=== PATIENT | male | born 1930 | race Asian ===

== ENCOUNTER 2016-07-21 13:23 | Inpatient (IN) | payer MEDICARE, OTHER ==
[~2016-07-21] VITALS: Ht 172.7 cm; Wt 56.4 kg
[~2016-07-21 13:23] MED LIST: ALBU8HFA4 IH; AMLO5TAB66 PO; ATOR20TA86 PO; ESOM40CA PO; FOLI1TAB15 PO; INSU100C4 SQ; IPRAHFA IH; LEVO75TA12 PO; LOSA50TA37 PO; PRED20 PO; SITA50 PO; WARF1 PO
[2016-07-21] MEDS ORDERED: ALBUTEROL SULFATE 2.5 MG/0.5 ML NEB SOLUTION NEB ONE (13:45)
[2016-07-21] MEDS ORDERED: IPRATROPIUM BROMIDE 0.5 MG/2.5 ML NEB SOLUTION NEB ONE ×2 (13:45→14:30)
[2016-07-21] MEDS ORDERED: DEXAMETHASONE SOD PHOS 4 MG/ML 5 ML VIAL IVP ONE (14:30)
[2016-07-21] MEDS ORDERED: ALBUTEROL SULFATE 5 MG/ML 20 ML NEB SOLN [BULK] NEB ONE (14:30)
[2016-07-21 14:48] LABS: BASOPHILS % (AUTO) 0.1 % (0.0-2.0); EOSINOPHILS % (AUTO) 0.3 % (1.0-6.0); HEMATOCRIT 26.7 % (41-53); HEMOGLOBIN 8.4 g/dL (13.5-17.5); LYMPHOCYTES % (AUTO) 8.3 % (22.0-44.0); MEAN CORPUSCULAR HEMOGLOBIN 25.3 pg (26.0-34.0); MEAN CORPUSCULAR HGB CONC 31.3 G/dL (31.0-37.0); MEAN CORPUSCULAR VOLUME 81 fL (80-100); MONOCYTES # (AUTO) 0.8 K/uL (0.1-1.0); MONOCYTES % (AUTO) 6.4 % (2.0-9.0); NEUTROPHILS # (AUTO) 10.3 K/uL (1.8-7.7); NEUTROPHILS % (AUTO) 84.9 % (40.0-70.0); PLATELET COUNT (AUTO) 381 K/uL (150-450); RED CELL DISTRIBUTION WIDTH 15.2 % (11.5-14.5); WHITE BLOOD COUNT (AUTO) 12.2 K/uL (4.5-11.0)
[2016-07-21 15:02] LABS: CALCIUM, TOTAL 8.2 mg/dL (8.8-10.5); CREATININE 1.81 mg/dL (0.60-1.30); POTASSIUM 4.1 mmol/L (3.5-5.1)
[2016-07-21 15:09] LABS: BILIRUBIN,TOTAL 0.5 mg/dL (0.1-1.0); TOTAL PROTEIN, SERUM 6.9 g/dL (6.4-8.2)
[2016-07-21 15:18] LABS: ORIG DRAW (USER) PTCARESTAF
[2016-07-21 15:41] LABS: INFLUENZA TYPE B NEGATIVE FOR TYPE B (NEGATIVE)
[2016-07-21] MEDS ORDERED: AZITHROMYCIN 500 MG/NS 250 ML IV ONE (16:00)
[2016-07-21] MEDS ORDERED: CefTRIAXone 1 GM/DEXTROSE 50 ML IV ONE (16:00)
[2016-07-21 16:02] LABS: INR 13.7 (0.9-1.1)
[2016-07-21 16:03] LABS: PROTHROMBIN TIME 145.3 SEC (9.4-11.6)
[2016-07-21] MEDS ORDERED: 0.9% SODIUM CHLORIDE 10 ML SYRINGE IVP PRN (18:15)
[2016-07-21] MEDS ORDERED: ACETAMINOPHEN 325 MG TABLET PO PRN (18:15)
[2016-07-21] MEDS ORDERED: ONDANSETRON HCL 4 MG/2 ML VIAL IVP PRN (18:15)
[2016-07-21 22:19] VITALS: BP 130/58
[2016-07-21 23:32] VITALS: BP 125/54
[2016-07-22] MEDS ORDERED: PHYTONADIONE 5 MG TABLET PO ONE (03:30)
[2016-07-22] MEDS ORDERED: DEXTROSE 50%-WATER 25 GM/50 ML SYRINGE IVP PRN (03:45)
[2016-07-22 04:29] VITALS: BP 132/52
[2016-07-22] MEDS: LEVOTHYROXINE SODIUM 75 MCG TABLET PO SCH (05:42)
[2016-07-22] MEDS: INSULIN ASPART 100 UNITS/ML SQ PRN ×4 (05:45→20:30)
[2016-07-22] MEDS ORDERED: PHYTONADIONE 5 MG in SODIUM CHLORIDE 0.9% 50 ML IV ONE (06:30)
[2016-07-22 07:16] VITALS: BP 140/49
[2016-07-22] MEDS: AmLODIPine BESYLATE 5 MG TABLET PO SCH (08:00)
[2016-07-22] MEDS: LOSARTAN POTASSIUM 50 MG TABLET PO SCH (08:01)
[2016-07-22] MEDS: FOLIC ACID 1 MG TABLET PO SCH (08:01)
[2016-07-22] MEDS: ATORVASTATIN CALCIUM 20 MG TABLET PO SCH (08:01)
[2016-07-22 08:10] LABS: EOSINOPHILS % (AUTO) 0 % (1.0-6.0); HEMATOCRIT 23.3 % (41-53); HEMOGLOBIN 7.2 g/dL (13.5-17.5); LYMPHOCYTES # (AUTO) 0.4 K/uL (1.0-4.8); LYMPHOCYTES % (AUTO) 3.5 % (22.0-44.0); MEAN CORPUSCULAR HEMOGLOBIN 25.7 pg (26.0-34.0); MEAN CORPUSCULAR VOLUME 83 fL (80-100); MONOCYTES # (AUTO) 0.1 K/uL (0.1-1.0); MONOCYTES % (AUTO) 1.1 % (2.0-9.0); NEUTROPHILS # (AUTO) 10.2 K/uL (1.8-7.7); NEUTROPHILS % (AUTO) 95.4 % (40.0-70.0); PLATELET COUNT (AUTO) 386 K/uL (150-450); RED BLOOD CELL COUNT(AUTO) 2.82 MIL/uL (4.50-5.90); RED CELL DISTRIBUTION WIDTH 15.4 % (11.5-14.5); WHITE BLOOD COUNT (AUTO) 10.7 K/uL (4.5-11.0)
[2016-07-22 08:24] LABS: CALCIUM, TOTAL 8.2 mg/dL (8.8-10.5); CREATININE 2.04 mg/dL (0.60-1.30); POTASSIUM 5.2 mmol/L (3.5-5.1)
[2016-07-22 09:19] LABS: PROTHROMBIN TIME 117.2 SEC (9.4-11.6)
[2016-07-22 10:07] LABS: INR 11.1 (0.9-1.1)
[2016-07-22 11:08] VITALS: BP 123/55
[2016-07-22] MEDS: DOXYCYCLINE 100 MG CAPSULE PO SCH ×2 (12:23→20:25)
[2016-07-22] MEDS: CefTRIAXone 1 GM/DEXTROSE 50 ML IV SCH (15:01)
[2016-07-22 15:14] VITALS: BP 127/53
[2016-07-22] MEDS: ALBUTEROL SULFATE 2.5 MG/0.5 ML NEB SOLUTION NEB SCH ×3 (16:20→23:12)
[2016-07-22] MEDS: IPRATROPIUM BROMIDE 0.5 MG/2.5 ML NEB SOLUTION NEB SCH ×3 (16:20→23:12)
[2016-07-22 17:22] LABS: GLUCOSE COMMENT 1 Received Meds; GLUCOSE,POINT OF CARE 391 MG/DL (70-110)
[2016-07-22 17:26] LABS: GLUCOSE COMMENT 1 Received Meds; GLUCOSE,POINT OF CARE 330 MG/DL (70-110)
[2016-07-22 19:35] VITALS: BP 124/56
[2016-07-22] MEDS ORDERED: MORPHINE SULFATE 10 MG/ML SYRINGE IVP PRN ×3 (20:30)
[2016-07-22 23:48] VITALS: BP 136/59
[2016-07-23] MEDS: ACETAMINOPHEN 325 MG TABLET PO PRN ×4 (00:21→23:19)
[2016-07-23] MEDS: ALBUTEROL SULFATE 2.5 MG/0.5 ML NEB SOLUTION NEB SCH ×6 (03:42→23:07)
[2016-07-23] MEDS: IPRATROPIUM BROMIDE 0.5 MG/2.5 ML NEB SOLUTION NEB SCH ×6 (03:42→23:07)
[2016-07-23 05:09] VITALS: BP 131/57
[2016-07-23] MEDS: LEVOTHYROXINE SODIUM 75 MCG TABLET PO SCH (06:11)
[2016-07-23] MEDS: INSULIN ASPART 100 UNITS/ML SQ PRN ×4 (06:14→20:43)
[2016-07-23 06:36] LABS: EOSINOPHILS % (AUTO) 0 % (1.0-6.0); LYMPHOCYTES # (AUTO) 0.7 K/uL (1.0-4.8); LYMPHOCYTES % (AUTO) 2.4 % (22.0-44.0); MEAN CORPUSCULAR HEMOGLOBIN 26.3 pg (26.0-34.0); MEAN CORPUSCULAR HGB CONC 31.3 G/dL (31.0-37.0); MEAN CORPUSCULAR VOLUME 84 fL (80-100); MONOCYTES # (AUTO) 0.9 K/uL (0.1-1.0); NEUTROPHILS # (AUTO) 27.2 K/uL (1.8-7.7); PLATELET COUNT (AUTO) 386 K/uL (150-450); RED BLOOD CELL COUNT(AUTO) 2.47 MIL/uL (4.50-5.90); RED CELL DISTRIBUTION WIDTH 15.1 % (11.5-14.5); WHITE BLOOD COUNT (AUTO) 28.7 K/uL (4.5-11.0)
[2016-07-23 06:47] LABS: INR 2.5 (0.9-1.1); PROTHROMBIN TIME 26.3 SEC (9.4-11.6)
[2016-07-23 07:00] LABS: BILIRUBIN,TOTAL 0.3 mg/dL (0.1-1.0); CREATININE 2.2 mg/dL (0.60-1.30); TOTAL PROTEIN, SERUM 6.2 g/dL (6.4-8.2)
[2016-07-23 07:15] VITALS: BP 118/48
[2016-07-23 07:51] LABS: HEMOGLOBIN 6.5 g/dL (13.5-17.5)
[2016-07-23 07:52] LABS: HEMATOCRIT 20.7 % (41-53); NEUTROPHILS % (AUTO) 94.6 % (40.0-70.0)
[2016-07-23] MEDS: DOXYCYCLINE 100 MG CAPSULE PO SCH ×2 (09:37→20:39)
[2016-07-23] MEDS: ATORVASTATIN CALCIUM 20 MG TABLET PO SCH (09:37)
[2016-07-23] MEDS: FOLIC ACID 1 MG TABLET PO SCH (09:37)
[2016-07-23] MEDS: AmLODIPine BESYLATE 5 MG TABLET PO SCH (09:38)
[2016-07-23 10:15] LABS: RBC MORPHOLOGY COMMENT ABNORMAL RBC MORPH
[2016-07-23] MEDS: LOSARTAN POTASSIUM 50 MG TABLET PO SCH (11:40)
[2016-07-23 11:46] VITALS: BP 116/46
[2016-07-23 13:33] LABS: GLUCOSE,POINT OF CARE 219 MG/DL (70-110)
[2016-07-23] MEDS: CefTRIAXone 1 GM/DEXTROSE 50 ML IV SCH (15:21)
[2016-07-23 15:30] VITALS: BP 113/49
[2016-07-23 15:44] LABS: VITAMIN B12 LEVEL 1053 pg/mL (211-911)
[2016-07-23 19:27] VITALS: BP 128/53
[2016-07-23 21:57] LABS: GLUCOSE COMMENT 1 Received Meds; GLUCOSE,POINT OF CARE 297 MG/DL (70-110)
[2016-07-23 21:57] LABS: GLUCOSE COMMENT 1 Received Meds; GLUCOSE,POINT OF CARE 265 MG/DL (70-110)
[2016-07-23 22:31] LABS: GLUCOSE COMMENT 1 Received Meds; GLUCOSE,POINT OF CARE 234 MG/DL (70-110)
[2016-07-23 22:32] LABS: GLUCOSE COMMENT 1 Received Meds; GLUCOSE,POINT OF CARE 283 MG/DL (70-110)
[2016-07-23] MEDS ORDERED: SODIUM CHLORIDE 0.9% 250 ML IV ONE (23:50)
[2016-07-24] VITALS (15 sets, daily range): BP systolic 118–153; BP diastolic 51–96
[2016-07-24] MEDS: AMPICILLIN SODIUM/SULBACTAM NA 3 GM in SODIUM CHLORIDE 0.9% 100 ML IV SCH ×2 (00:24→11:30)
[2016-07-24] MEDS: ALBUTEROL SULFATE 2.5 MG/0.5 ML NEB SOLUTION NEB SCH ×6 (02:55→22:46)
[2016-07-24] MEDS: IPRATROPIUM BROMIDE 0.5 MG/2.5 ML NEB SOLUTION NEB SCH ×6 (02:55→22:46)
[2016-07-24] MEDS: LEVOTHYROXINE SODIUM 75 MCG TABLET PO SCH (05:59)
[2016-07-24] MEDS: INSULIN ASPART 100 UNITS/ML SQ PRN ×4 (06:02→20:00)
[2016-07-24 06:41] LABS: EOSINOPHILS % (AUTO) 0.3 % (1.0-6.0); LYMPHOCYTES # (AUTO) 1.2 K/uL (1.0-4.8); LYMPHOCYTES % (AUTO) 7.6 % (22.0-44.0); MEAN CORPUSCULAR HEMOGLOBIN 26.3 pg (26.0-34.0); MEAN CORPUSCULAR HGB CONC 30.6 G/dL (31.0-37.0); MEAN CORPUSCULAR VOLUME 86 fL (80-100); MONOCYTES # (AUTO) 1.1 K/uL (0.1-1.0); MONOCYTES % (AUTO) 6.8 % (2.0-9.0); NEUTROPHILS # (AUTO) 13.6 K/uL (1.8-7.7); PLATELET COUNT (AUTO) 394 K/uL (150-450); RED BLOOD CELL COUNT(AUTO) 2.42 MIL/uL (4.50-5.90); RED CELL DISTRIBUTION WIDTH 15.4 % (11.5-14.5)
[2016-07-24] MEDS ORDERED: SODIUM CHLORIDE 0.9% 250 ML IV ONE (07:17)
[2016-07-24 07:22] LABS: NEUTROPHILS % (AUTO) 85.3 % (40.0-70.0)
[2016-07-24 07:26] LABS: HEMATOCRIT 20.7 % (41-53); HEMOGLOBIN 6.3 g/dL (13.5-17.5)
[2016-07-24 07:43] LABS: CREATININE 2.1 mg/dL (0.60-1.30); POTASSIUM 4.8 mmol/L (3.5-5.1)
[2016-07-24] MEDS: FOLIC ACID 1 MG TABLET PO SCH (08:45)
[2016-07-24] MEDS: DOXYCYCLINE 100 MG CAPSULE PO SCH ×2 (08:46→19:57)
[2016-07-24] MEDS: ATORVASTATIN CALCIUM 20 MG TABLET PO SCH (08:46)
[2016-07-24] MEDS: AmLODIPine BESYLATE 5 MG TABLET PO SCH (09:30)
[2016-07-24 10:17] LABS: APPEARANCE,URINE CLEAR (CLEAR); GLUCOSE, URINE (UA) 100 mg/dL (NEGATIVE); KETONES,URINE NEGATIVE (NEGATIVE); LEUKOCYTE ESTERASE ,URINE NEGATIVE (NEGATIVE); OCCULT BLOOD,URINE NEGATIVE (NEGATIVE); PH,URINE 5.5 (5.0-8.0); PROTEIN,URINE SEE CONFIRM (NEGATIVE)
[2016-07-24 10:20] LABS: ADD UA MICROSCOPIC YES
[2016-07-24 10:49] LABS: SULFOSALICYLIC ACID,URINE 2+ (Negative)
[2016-07-24 10:51] LABS: RBC,URINE 0-2 /HPF (0-2); SQUAMOUS EPITHELIAL CELL,UR Few /LPF (None Seen); WBC,URINE 0-2 /HPF (0-5)
[2016-07-24] MEDS: LOSARTAN POTASSIUM 50 MG TABLET PO SCH (11:22)
[2016-07-24 14:57] LABS: HEMATOCRIT 26.9 % (41-53); HEMOGLOBIN 8.5 g/dL (13.5-17.5)
[2016-07-25] VITALS (7 sets, daily range): BP systolic 118–156; BP diastolic 56–65
[2016-07-25] MEDS: AMPICILLIN SODIUM/SULBACTAM NA 3 GM in SODIUM CHLORIDE 0.9% 100 ML IV SCH ×2 (00:18→12:46)
[2016-07-25] MEDS: IPRATROPIUM BROMIDE 0.5 MG/2.5 ML NEB SOLUTION NEB SCH ×6 (03:09→23:07)
[2016-07-25] MEDS: ALBUTEROL SULFATE 2.5 MG/0.5 ML NEB SOLUTION NEB SCH ×6 (03:09→23:06)
[2016-07-25] MEDS: LEVOTHYROXINE SODIUM 75 MCG TABLET PO SCH (05:34)
[2016-07-25] MEDS: INSULIN ASPART 100 UNITS/ML SQ PRN ×3 (05:38→18:03)
[2016-07-25 07:46] LABS: EOSINOPHILS # (AUTO) 0.07 K/uL (0.00-0.70); EOSINOPHILS % (AUTO) 0.63 % (1.0-6.0); HEMATOCRIT 24.3 % (41-53); HEMOGLOBIN 7.9 g/dL (13.5-17.5); LYMPHOCYTES % (AUTO) 9.9 % (22.0-44.0); MEAN CORPUSCULAR HEMOGLOBIN 26.2 pg (26.0-34.0); MEAN CORPUSCULAR HGB CONC 32.4 G/dL (31.0-37.0); MEAN CORPUSCULAR VOLUME 81 fL (80-100); MONOCYTES # (AUTO) 1.2 K/uL (0.1-1.0); NEUTROPHILS # (AUTO) 8.2 K/uL (1.8-7.7); NEUTROPHILS % (AUTO) 78.4 % (40.0-70.0); PLATELET COUNT (AUTO) 356 K/uL (150-450); RED CELL DISTRIBUTION WIDTH 17.5 % (11.5-14.5); WHITE BLOOD COUNT (AUTO) 10.4 K/uL (4.5-11.0)
[2016-07-25 08:06] LABS: RBC MORPHOLOGY COMMENT ABNORMAL RBC MORPH
[2016-07-25] MEDS: AmLODIPine BESYLATE 5 MG TABLET PO SCH (08:57)
[2016-07-25] MEDS: ATORVASTATIN CALCIUM 20 MG TABLET PO SCH (08:57)
[2016-07-25] MEDS: LOSARTAN POTASSIUM 50 MG TABLET PO SCH (08:57)
[2016-07-25] MEDS: FOLIC ACID 1 MG TABLET PO SCH (08:57)
[2016-07-25] MEDS: DOXYCYCLINE 100 MG CAPSULE PO SCH ×2 (08:58→21:07)
[2016-07-25] MEDS ORDERED: METOPROLOL TARTRATE 25 MG TABLET PO SCH ×2 (12:30→21:00)
[2016-07-25] MEDS: METOPROLOL TARTRATE 25 MG TABLET PO SCH ×2 (12:45→21:07)
[2016-07-25 17:33] LABS: GLUCOSE COMMENT 1 Received Meds; GLUCOSE,POINT OF CARE 282 MG/DL (70-110)
[2016-07-25 17:33] LABS: GLUCOSE,POINT OF CARE 231 MG/DL (70-110)
[2016-07-25 17:33] LABS: GLUCOSE COMMENT 1 Received Meds; GLUCOSE,POINT OF CARE 207 MG/DL (70-110)
[2016-07-26] MEDS: AMPICILLIN SODIUM/SULBACTAM NA 3 GM in SODIUM CHLORIDE 0.9% 100 ML IV SCH ×2 (00:41→11:50)
[2016-07-26] MEDS: ALBUTEROL SULFATE 2.5 MG/0.5 ML NEB SOLUTION NEB SCH ×6 (03:04→22:52)
[2016-07-26] MEDS: IPRATROPIUM BROMIDE 0.5 MG/2.5 ML NEB SOLUTION NEB SCH ×6 (03:04→22:52)
[2016-07-26 05:05] VITALS: BP 145/62
[2016-07-26] MEDS: LEVOTHYROXINE SODIUM 75 MCG TABLET PO SCH (06:26)
[2016-07-26 06:43] LABS: BASOPHILS % (AUTO) 0.2 % (0.0-2.0); EOSINOPHILS % (AUTO) 0.8 % (1.0-6.0); HEMATOCRIT 25.5 % (41-53); HEMOGLOBIN 7.9 g/dL (13.5-17.5); LYMPHOCYTES # (AUTO) 1.1 K/uL (1.0-4.8); LYMPHOCYTES % (AUTO) 9.8 % (22.0-44.0); MEAN CORPUSCULAR HEMOGLOBIN 25.8 pg (26.0-34.0); MEAN CORPUSCULAR HGB CONC 30.9 G/dL (31.0-37.0); MEAN CORPUSCULAR VOLUME 84 fL (80-100); MONOCYTES % (AUTO) 8.8 % (2.0-9.0); NEUTROPHILS % (AUTO) 80.4 % (40.0-70.0); PLATELET COUNT (AUTO) 344 K/uL (150-450); RED BLOOD CELL COUNT(AUTO) 3.05 MIL/uL (4.50-5.90); RED CELL DISTRIBUTION WIDTH 16.7 % (11.5-14.5); WHITE BLOOD COUNT (AUTO) 11.1 K/uL (4.5-11.0)
[2016-07-26 07:42] LABS: GLUCOSE COMMENT 1 Received Meds; GLUCOSE,POINT OF CARE 165 MG/DL (70-110)
[2016-07-26 08:20] VITALS: BP 142/65
[2016-07-26] MEDS: LOSARTAN POTASSIUM 50 MG TABLET PO SCH (08:29)
[2016-07-26] MEDS: FOLIC ACID 1 MG TABLET PO SCH (08:29)
[2016-07-26] MEDS: AmLODIPine BESYLATE 5 MG TABLET PO SCH (08:30)
[2016-07-26] MEDS: METOPROLOL TARTRATE 25 MG TABLET PO SCH ×2 (08:30→20:26)
[2016-07-26] MEDS: ATORVASTATIN CALCIUM 20 MG TABLET PO SCH (08:30)
[2016-07-26] MEDS: MULTIVITAMINS WITH MINERALS, THERAPEUTIC TABLET PO SCH (08:30)
[2016-07-26] MEDS: DOXYCYCLINE 100 MG CAPSULE PO SCH ×2 (08:31→20:26)
[2016-07-26 08:57] LABS: GLUCOSE COMMENT 1 Received Meds; GLUCOSE,POINT OF CARE 164 MG/DL (70-110)
[2016-07-26] MEDS: INSULIN ASPART 100 UNITS/ML SQ PRN ×3 (11:52→20:26)
[2016-07-26 12:26] VITALS: BP 138/50
[2016-07-26 15:37] VITALS: BP 138/52
[2016-07-26 19:59] VITALS: BP 150/68
[2016-07-26 23:36] VITALS: BP 127/55
[2016-07-27] MEDS: AMPICILLIN SODIUM/SULBACTAM NA 3 GM in SODIUM CHLORIDE 0.9% 100 ML IV SCH ×2 (00:02→11:57)
[2016-07-27] MEDS: IPRATROPIUM BROMIDE 0.5 MG/2.5 ML NEB SOLUTION NEB SCH ×4 (03:26→15:00)
[2016-07-27] MEDS: ALBUTEROL SULFATE 2.5 MG/0.5 ML NEB SOLUTION NEB SCH ×4 (03:26→15:00)
[2016-07-27 05:24] VITALS: BP 136/52
[2016-07-27] MEDS: LEVOTHYROXINE SODIUM 75 MCG TABLET PO SCH (05:31)
[2016-07-27 07:15] VITALS: BP 137/52
[2016-07-27 07:33] LABS: GLUCOSE COMMENT 1 Received Meds; GLUCOSE,POINT OF CARE 179 MG/DL (70-110)
[2016-07-27] MEDS: LOSARTAN POTASSIUM 50 MG TABLET PO SCH (09:00)
[2016-07-27] MEDS: ATORVASTATIN CALCIUM 20 MG TABLET PO SCH (09:01)
[2016-07-27] MEDS: MULTIVITAMINS WITH MINERALS, THERAPEUTIC TABLET PO SCH (09:01)
[2016-07-27] MEDS: AmLODIPine BESYLATE 5 MG TABLET PO SCH (09:01)
[2016-07-27] MEDS: METOPROLOL TARTRATE 25 MG TABLET PO SCH (09:01)
[2016-07-27] MEDS: FOLIC ACID 1 MG TABLET PO SCH (09:01)
[2016-07-27] MEDS: DOXYCYCLINE 100 MG CAPSULE PO SCH (09:02)
[2016-07-27 11:31] VITALS: BP 138/66
[2016-07-27] MEDS: INSULIN ASPART 100 UNITS/ML SQ PRN (12:02)
[2016-07-27] MEDS ORDERED: ALBU8HFA IH (14:06)
[2016-07-27] MEDS ORDERED: IPRAHFA IH (14:08)
[2016-07-27] MEDS ORDERED: AMOX1TAB15 PO (14:12)
[2016-07-27] MEDS ORDERED: DOXY100C PO (14:13)
[2016-07-27] MEDS ORDERED: METO25 PO (14:15)
[2016-07-27] MEDS ORDERED: MULT-248 PO (14:16)
[2016-07-27 15:55] VITALS: BP 132/68
[2016-07-27 20:12] LABS: GLUCOSE COMMENT 1 Received Meds; GLUCOSE,POINT OF CARE 234 MG/DL (70-110)
[2016-07-31 11:48] LABS: GLUCOSE COMMENT 1 Received Meds; GLUCOSE,POINT OF CARE 235 MG/DL (70-110)
[2016-07-31 11:48] LABS: GLUCOSE COMMENT 1 Received Meds; GLUCOSE,POINT OF CARE 241 MG/DL (70-110)
[2016-07-31 11:48] LABS: GLUCOSE COMMENT 1 Received Meds; GLUCOSE,POINT OF CARE 234 MG/DL (70-110)
[2016-07-31 11:49] LABS: GLUCOSE,POINT OF CARE 269 MG/DL (70-110)
[2016-07-31 11:49] LABS: GLUCOSE COMMENT 1 Received Meds; GLUCOSE,POINT OF CARE 161 MG/DL (70-110)
[2016-07-31 11:49] LABS: GLUCOSE COMMENT 1 Received Meds; GLUCOSE,POINT OF CARE 245 MG/DL (70-110)
[2016-07-31 11:52] LABS: GLUCOSE,POINT OF CARE 118 MG/DL (70-110)
[2016-07-31 11:52] LABS: GLUCOSE COMMENT 1 Received Meds; GLUCOSE,POINT OF CARE 175 MG/DL (70-110)
[2016-07-31 11:53] LABS: GLUCOSE COMMENT 1 Received Meds; GLUCOSE,POINT OF CARE 236 MG/DL (70-110)
== END 2016-07-27 17:20 | disposition home or self-care (01) | DRG 871 ==
LOC: EDBD → EMS 13:25 → 5N 20:30
PROVIDERS: ADMIT Internal Medicine; ATTEND Internal Medicine
PROC: 30233N1 Transfusion of Nonautologous Red Blood Cells into Peripheral Vein, Percutaneous Approach (ICD-10-PCS; principal; 2016-07-24)
DX: A41.9 Sepsis, unspecified organism (principal); E43 Unspecified severe protein-calorie malnutrition; J18.9 Pneumonia, unspecified organism; J96.90 Respiratory failure, unspecified, unspecified whether with hypoxia or hypercapnia; J44.0 Chronic obstructive pulmonary disease with (acute) lower respiratory infection; J44.1 Chronic obstructive pulmonary disease with (acute) exacerbation; N17.9 Acute kidney failure, unspecified; Z68.1 Body mass index [BMI] 19.9 or less, adult; E78.00 Pure hypercholesterolemia, unspecified; R79.1 Abnormal coagulation profile; I12.9 Hypertensive chronic kidney disease with stage 1 through stage 4 chronic kidney disease, or unspecified chronic kidney disease; D64.9 Anemia, unspecified; E78.5 Hyperlipidemia, unspecified; I25.10 Atherosclerotic heart disease of native coronary artery without angina pectoris; I48.2 Chronic atrial fibrillation; N18.9 Chronic kidney disease, unspecified; T45.515A Adverse effect of anticoagulants, initial encounter; Z77.090 Contact with and (suspected) exposure to asbestos; E11.22 Type 2 diabetes mellitus with diabetic chronic kidney disease; Z79.01 Long term (current) use of anticoagulants; Z87.891 Personal history of nicotine dependence; Z99.81 Dependence on supplemental oxygen; Z99.3 Dependence on wheelchair; Z79.4 Long term (current) use of insulin; Z79.899 Other long term (current) drug therapy; Z98.890 Other specified postprocedural states; I25.2 Old myocardial infarction; Z82.49 Family history of ischemic heart disease and other diseases of the circulatory system; Z83.3 Family history of diabetes mellitus; Y92.89 Other specified places as the place of occurrence of the external cause; Y93.89 Activity, other specified; Y99.8 Other external cause status
CPT/HCPCS: 71250; 82271; 82607; 82746; 82962; 83540; 83550; 84145; 85014; 85018; 86850; 86870; 86880; 86900; 86901; 86905; 86906; 86922; 86970; 86971; 86999; 87040; 87449; 87804; 92610; 93005; 94640; 94644; 96365; 96366; 96375; 97116; 97162; 97166; 97530; 99291; J0295; J0456; J0696; J1100; J3430; J7050; P9016

== ENCOUNTER 2016-07-31 00:48 | Emergency (ER) | payer MEDICARE, OTHER ==
[~2016-07-31] VITALS: Ht 172.7 cm; Wt 56.0 kg
[~2016-07-31 00:48] MED LIST changes: +ALBU8HFA IH; -ALBU8HFA4 IH; +AMOX1TAB15 PO; +DOXY100C PO; -INSU100C4 SQ; +METO25 PO; +MULT-248 PO; -PRED20 PO; -WARF1 PO
[2016-07-31 01:25] LABS: BASOPHILS % (AUTO) 0.2 % (0.0-2.0); EOSINOPHILS % (AUTO) 1.6 % (1.0-6.0); HEMATOCRIT 27.1 % (41-53); HEMOGLOBIN 8.3 g/dL (13.5-17.5); LYMPHOCYTES # (AUTO) 1.5 K/uL (1.0-4.8); LYMPHOCYTES % (AUTO) 17.7 % (22.0-44.0); MEAN CORPUSCULAR HEMOGLOBIN 25.2 pg (26.0-34.0); MEAN CORPUSCULAR HGB CONC 30.7 G/dL (31.0-37.0); MEAN CORPUSCULAR VOLUME 82 fL (80-100); MONOCYTES # (AUTO) 1.1 K/uL (0.1-1.0); MONOCYTES % (AUTO) 12.9 % (2.0-9.0); NEUTROPHILS # (AUTO) 5.7 K/uL (1.8-7.7); NEUTROPHILS % (AUTO) 67.6 % (40.0-70.0); PLATELET COUNT (AUTO) 220 K/uL (150-450); RED CELL DISTRIBUTION WIDTH 16.8 % (11.5-14.5); WHITE BLOOD COUNT (AUTO) 8.4 K/uL (4.5-11.0)
[2016-07-31 01:29] LABS: ANION GAP 2 mmol/L (8-16); CALCIUM, TOTAL 8.6 mg/dL (8.8-10.5); CARBON DIOXIDE 38 mmol/L (22-29); CHLORIDE 106 mmol/L (98-107); CREATININE 1.32 mg/dL (0.60-1.30); GLOMERULAR FILTR. RATE CALC 51 mL/min (>60); POTASSIUM 4.7 mmol/L (3.5-5.1); SODIUM SERUM 146 mmol/L (136-145); UREA NITROGEN, BLOOD 24 mg/dL (7-18)
[2016-07-31 01:30] LABS: INR 1.1 (0.9-1.1); PROTHROMBIN TIME 11.9 SEC (9.4-11.6)
[2016-07-31 01:35] LABS: ALANINE AMINOTRANSFERASE 19 U/L (12-78); ALBUMIN 2.4 g/dL (3.4-5.0); ASPARTATE AMINOTRANSFERASE 21 U/L (15-37); BILIRUBIN,TOTAL 0.6 mg/dL (0.1-1.0); CREATINE KINASE, TOTAL 31 U/L (39-308); TOTAL PROTEIN, SERUM 6.8 g/dL (6.4-8.2)
[2016-07-31 01:58] LABS: B-TYPE NATRIURETIC PEPTIDE 693 pg/mL (0-100)
[2016-07-31 02:39] VITALS: BP 164/72
== END 2016-07-31 03:00 | disposition home or self-care (01) ==
LOC: EDBD → EMS 00:50
DX: F41.9 Anxiety disorder, unspecified (principal); R06.02 Shortness of breath; E11.9 Type 2 diabetes mellitus without complications; J44.9 Chronic obstructive pulmonary disease, unspecified; I11.9 Hypertensive heart disease without heart failure; I25.2 Old myocardial infarction; I48.91 Unspecified atrial fibrillation; Z87.891 Personal history of nicotine dependence
CPT/HCPCS: 93005; 99285

== ENCOUNTER → 2016-08-07 | Outpatient (CLI) | payer MEDICARE, OTHER ==
[2016-08-07 13:58] VITALS: BP 149/66
== END | disposition home or self-care (01) ==
LOC: SRCNTR 13:22
PROVIDERS: ATTEND Internal Medicine Critical Care Medicine
DX: I12.9 Hypertensive chronic kidney disease with stage 1 through stage 4 chronic kidney disease, or unspecified chronic kidney disease (principal); N17.9 Acute kidney failure, unspecified; N18.9 Chronic kidney disease, unspecified; E78.5 Hyperlipidemia, unspecified; E03.9 Hypothyroidism, unspecified; E11.9 Type 2 diabetes mellitus without complications; J18.9 Pneumonia, unspecified organism; D64.9 Anemia, unspecified; A41.9 Sepsis, unspecified organism
CPT/HCPCS: G0463

== ENCOUNTER 2016-08-08 14:58 | Emergency (ER) | payer MEDICARE, OTHER ==
[~2016-08-08] VITALS: Ht 167.6 cm; Wt 50.0 kg
[2016-08-08 15:48] LABS: BASOPHILS % (AUTO) 0.3 % (0.0-2.0); EOSINOPHILS % (AUTO) 1.3 % (1.0-6.0); HEMATOCRIT 26.7 % (41-53); HEMOGLOBIN 8.1 g/dL (13.5-17.5); LYMPHOCYTES % (AUTO) 18.6 % (22.0-44.0); MEAN CORPUSCULAR HEMOGLOBIN 25.5 pg (26.0-34.0); MEAN CORPUSCULAR HGB CONC 30.4 G/dL (31.0-37.0); MEAN CORPUSCULAR VOLUME 84 fL (80-100); MONOCYTES # (AUTO) 0.4 K/uL (0.1-1.0); MONOCYTES % (AUTO) 7.8 % (2.0-9.0); PLATELET COUNT (AUTO) 160 K/uL (150-450); RED BLOOD CELL COUNT(AUTO) 3.18 MIL/uL (4.50-5.90); RED CELL DISTRIBUTION WIDTH 16.4 % (11.5-14.5); WHITE BLOOD COUNT (AUTO) 5.6 K/uL (4.5-11.0)
[2016-08-08 16:01] LABS: CREATININE 1.27 mg/dL (0.60-1.30); POTASSIUM 4.9 mmol/L (3.5-5.1)
[2016-08-08 16:09] LABS: RBC MORPHOLOGY COMMENT NORMAL RBC MORPH
[2016-08-08 16:21] VITALS: BP 156/75
== END 2016-08-08 16:45 | disposition home or self-care (01) ==
LOC: EMS 15:01
DX: D64.9 Anemia, unspecified (principal); I48.91 Unspecified atrial fibrillation; I10 Essential (primary) hypertension; I25.2 Old myocardial infarction; J44.9 Chronic obstructive pulmonary disease, unspecified; E11.9 Type 2 diabetes mellitus without complications; Z87.891 Personal history of nicotine dependence; Z79.899 Other long term (current) drug therapy
CPT/HCPCS: 82962; 99284

== ENCOUNTER 2016-08-24 17:44 | Inpatient (IN) | payer MEDICARE, OTHER ==
[~2016-08-24] VITALS: Ht 162.6 cm; Wt 55.0 kg
[2016-08-24] MEDS ORDERED: ALPR0.255 PO (17:49)
[2016-08-24] MEDS ORDERED: ADV250 IH (17:56)
[2016-08-24] MEDS ORDERED: INSU3INS3 SQ (17:56)
[2016-08-24] MEDS ORDERED: DIGO125T PO (17:56)
[2016-08-24] MEDS ORDERED: IPRAHFA IH (17:56)
[2016-08-24] MEDS ORDERED: FLUT16H NASAL (17:56)
[2016-08-24] MEDS ORDERED: RIVA15T PO (17:56)
[2016-08-24] MEDS ORDERED: FURO20 PO (17:56)
[2016-08-24 18:33] LABS: BASOPHILS % (AUTO) 0.1 % (0.0-2.0); EOSINOPHILS % (AUTO) 0.3 % (1.0-6.0); HEMATOCRIT 26.6 % (41-53); HEMOGLOBIN 8.2 g/dL (13.5-17.5); LYMPHOCYTES # (AUTO) 0.6 K/uL (1.0-4.8); LYMPHOCYTES % (AUTO) 6.2 % (22.0-44.0); MEAN CORPUSCULAR HEMOGLOBIN 25.8 pg (26.0-34.0); MEAN CORPUSCULAR HGB CONC 30.7 G/dL (31.0-37.0); MEAN CORPUSCULAR VOLUME 84 fL (80-100); MONOCYTES # (AUTO) 0.7 K/uL (0.1-1.0); MONOCYTES % (AUTO) 6.8 % (2.0-9.0); NEUTROPHILS % (AUTO) 86.6 % (40.0-70.0); PLATELET COUNT (AUTO) 173 K/uL (150-450); RED BLOOD CELL COUNT(AUTO) 3.16 MIL/uL (4.50-5.90); RED CELL DISTRIBUTION WIDTH 16.4 % (11.5-14.5); WHITE BLOOD COUNT (AUTO) 10.4 K/uL (4.5-11.0)
[2016-08-24 18:45] LABS: ANION GAP 3 mmol/L (8-16); CALCIUM, TOTAL 8.4 mg/dL (8.8-10.5); CARBON DIOXIDE 37 mmol/L (22-29); CHLORIDE 103 mmol/L (98-107); CREATININE 1.46 mg/dL (0.60-1.30); GLOMERULAR FILTR. RATE CALC 46 mL/min (>60); POTASSIUM 4.6 mmol/L (3.5-5.1); SODIUM SERUM 143 mmol/L (136-145); UREA NITROGEN, BLOOD 23 mg/dL (7-18)
[2016-08-24] MEDS ORDERED: MethylPREDNISolone SOD SUCC 125 MG/2 ML VIAL IVP ONE (18:45)
[2016-08-24] MEDS ORDERED: ASPIRIN 81 MG CHEWABLE TABLET PO ONE (18:45)
[2016-08-24] MEDS ORDERED: ALBUTEROL SULFATE 5 MG/ML 20 ML NEB SOLN [BULK] NEB ONE (18:45)
[2016-08-24] MEDS ORDERED: IPRATROPIUM BROMIDE 0.5 MG/2.5 ML NEB SOLUTION NEB ONE (18:45)
[2016-08-24] MEDS ORDERED: AMLO2.5T PO (18:47)
[2016-08-24 18:52] LABS: ALANINE AMINOTRANSFERASE 16 U/L (12-78); ALBUMIN 2.2 g/dL (3.4-5.0); ASPARTATE AMINOTRANSFERASE 21 U/L (15-37); BILIRUBIN,TOTAL 0.2 mg/dL (0.1-1.0); CREATINE KINASE, TOTAL 34 U/L (39-308); TOTAL PROTEIN, SERUM 6.8 g/dL (6.4-8.2)
[2016-08-24 18:54] LABS: RBC MORPHOLOGY COMMENT ABNORMAL RBC MORPH
[2016-08-24 19:01] LABS: B-TYPE NATRIURETIC PEPTIDE 280 pg/mL (0-100)
[2016-08-24 19:06] LABS: TEMPERATURE, FAHRENHEIT, BG 97.5 FAHREN (96.0-98.6)
[2016-08-24 19:09] LABS: ABG A-A DIFF O2 6.7 mmHg (10-20.0); ABG BASE EXCESS 11.8 mmol/L (-2.0-3.0); ABG HCO3 34.2 mmol/L (22.0-26.0); ABG OXYHEMOGLOBIN 96.7 % (94.0-100.0); ABG PCO2 68 mmHg (35-45); ABG PH 7.357 (7.35-7.450)
[2016-08-24 19:10] LABS: ALLEN TEST, BLOOD GAS POS
[2016-08-24 19:14] LABS: DIGOXIN 0.67 ng/mL (0.90-2.00); THYROID STIMULATING HORMONE 3.32 uIU/mL (0.36-3.74)
[2016-08-24] MEDS ORDERED: FUROSEMIDE 40 MG/4 ML VIAL IVP ONE (19:45)
[2016-08-24] MEDS ORDERED: LEVOFLOXACIN 750 MG/D5% WATER 150 ML IV ONE (19:45)
[2016-08-24] MEDS ORDERED: NITROGLYCERIN 2% (1 GM=INCH) PACKET TP ONE (19:45)
[2016-08-24] MEDS: ALBUTEROL SULFATE 2.5 MG/0.5 ML NEB SOLUTION NEB SCH (20:00)
[2016-08-24] MEDS ORDERED: ALBUTEROL SULFATE 2.5 MG/0.5 ML NEB SOLUTION NEB PRN (20:00)
[2016-08-24] MEDS ORDERED: ACETAMINOPHEN 325 MG TABLET PO PRN (20:00)
[2016-08-24] MEDS ORDERED: ONDANSETRON HCL 4 MG/2 ML VIAL IVP PRN (20:00)
[2016-08-24] MEDS ORDERED: ZOLPIDEM TARTRATE 5 MG TABLET PO PRN (20:00)
[2016-08-24 20:31] LABS: ADD UA MICROSCOPIC YES; APPEARANCE,URINE CLEAR (CLEAR); GLUCOSE, URINE (UA) 500 mg/dL (NEGATIVE); KETONES,URINE NEGATIVE (NEGATIVE); LEUKOCYTE ESTERASE ,URINE NEGATIVE (NEGATIVE); OCCULT BLOOD,URINE SMALL (NEGATIVE); PH,URINE 5.5 (5.0-8.0); PROTEIN,URINE SEE CONFIRM (NEGATIVE)
[2016-08-24 20:40] LABS: SULFOSALICYLIC ACID,URINE 2+ (Negative)
[2016-08-24 20:41] LABS: SQUAMOUS EPITHELIAL CELL,UR Few /LPF (None Seen); WBC,URINE 0-2 /HPF (0-5)
[2016-08-24] MEDS ORDERED: SODIUM CHLORIDE 0.9% 250 ML IV ONE (21:18)
[2016-08-24 21:49] VITALS: BP 129/70
[2016-08-24] MEDS ORDERED: 0.9% SODIUM CHLORIDE 5 ML NEB SOLUTION NEB ONE (23:10)
[2016-08-24 23:16] VITALS: BP 127/59
[2016-08-24] MEDS ORDERED: DEXTROSE 50%-WATER 25 GM/50 ML SYRINGE IVP PRN (23:45)
[2016-08-24] MEDS ORDERED: INSULIN DETEMIR 100 UNITS/ML SQ SCH (23:45)
[2016-08-24] MEDS: OxyCODONE HCL/ACETAMINOPHEN 5-325 MG TABLET PO PRN (23:55)
[2016-08-24] MEDS: INSULIN ASPART 100 UNITS/ML SQ PRN (23:55)
[2016-08-25] MEDS ORDERED: HEPARIN SODIUM,PORCINE 5,000 UNITS/ML VIAL SQ SCH
[2016-08-25 00:40] VITALS: BP 132/62
[2016-08-25 00:52] LABS: GLUCOSE COMMENT 1 Received Meds; GLUCOSE,POINT OF CARE 358 MG/DL (70-110)
[2016-08-25] MEDS ORDERED: 0.9% SODIUM CHLORIDE 5 ML NEB SOLUTION NEB ONE ×4 (02:07→19:51)
[2016-08-25] MEDS: ALBUTEROL SULFATE 2.5 MG/0.5 ML NEB SOLUTION NEB SCH ×4 (02:12→20:26)
[2016-08-25 04:59] VITALS: BP 125/54
[2016-08-25] MEDS: LEVOTHYROXINE SODIUM 75 MCG TABLET PO SCH (06:23)
[2016-08-25] MEDS: INSULIN ASPART 100 UNITS/ML SQ PRN ×4 (06:26→20:50)
[2016-08-25 07:10] VITALS: BP 119/53
[2016-08-25 08:04] LABS: ALBUMIN 2.1 g/dL (3.4-5.0); BILIRUBIN,TOTAL 0.2 mg/dL (0.1-1.0); CALCIUM, TOTAL 8.3 mg/dL (8.8-10.5); CHOL/HDL RATIO 1.8 (4.2-7.3); CREATININE 1.8 mg/dL (0.60-1.30); POTASSIUM 4.6 mmol/L (3.5-5.1); THYROID STIMULATING HORMONE 1.52 uIU/mL (0.36-3.74); TOTAL PROTEIN, SERUM 6.5 g/dL (6.4-8.2)
[2016-08-25] MEDS: DIGOXIN 125 MCG TABLET PO SCH (09:09)
[2016-08-25] MEDS: METOPROLOL TARTRATE 25 MG TABLET PO SCH ×2 (09:09→20:46)
[2016-08-25] MEDS: LOSARTAN POTASSIUM 50 MG TABLET PO SCH (09:09)
[2016-08-25] MEDS: ATORVASTATIN CALCIUM 20 MG TABLET PO SCH (09:09)
[2016-08-25] MEDS: PANTOPRAZOLE SODIUM 40 MG DR TABLET PO SCH (09:09)
[2016-08-25] MEDS: ALPRAZolam 0.25 MG TABLET PO SCH ×2 (09:09→20:47)
[2016-08-25] MEDS: FOLIC ACID 1 MG TABLET PO SCH (09:09)
[2016-08-25] MEDS: AmLODIPine BESYLATE 2.5 MG TABLET PO SCH (09:09)
[2016-08-25] MEDS: FUROSEMIDE 20 MG TABLET PO SCH (09:09)
[2016-08-25 10:33] LABS: EOSINOPHILS % (AUTO) 0 % (1.0-6.0); HEMATOCRIT 25.4 % (41-53); HEMOGLOBIN 7.9 g/dL (13.5-17.5); LYMPHOCYTES # (AUTO) 0.2 K/uL (1.0-4.8); LYMPHOCYTES % (AUTO) 2.4 % (22.0-44.0); MEAN CORPUSCULAR HEMOGLOBIN 25.8 pg (26.0-34.0); MEAN CORPUSCULAR HGB CONC 30.9 G/dL (31.0-37.0); MEAN CORPUSCULAR VOLUME 83 fL (80-100); MONOCYTES # (AUTO) 0.2 K/uL (0.1-1.0); MONOCYTES % (AUTO) 1.9 % (2.0-9.0); NEUTROPHILS # (AUTO) 9.1 K/uL (1.8-7.7); PLATELET COUNT (AUTO) 174 K/uL (150-450); RED BLOOD CELL COUNT(AUTO) 3.05 MIL/uL (4.50-5.90); RED CELL DISTRIBUTION WIDTH 15.9 % (11.5-14.5); WHITE BLOOD COUNT (AUTO) 9.5 K/uL (4.5-11.0)
[2016-08-25 10:34] LABS: NEUTROPHILS % (AUTO) 95.7 % (40.0-70.0)
[2016-08-25 11:12] VITALS: BP 133/62
[2016-08-25 11:19] LABS: VITAMIN B12 LEVEL 843 pg/mL (211-911)
[2016-08-25 12:10] LABS: HEMOGLOBIN A1C 6.9 % (4.5-6.2)
[2016-08-25 15:20] VITALS: BP 110/52
[2016-08-25 16:21] LABS: GLUCOSE COMMENT 1 Received Meds; GLUCOSE,POINT OF CARE 339 MG/DL (70-110)
[2016-08-25] MEDS ORDERED: RIVAROXABAN 15 MG TABLET PO SCH (18:00)
[2016-08-25] MEDS: SitaGLIPtin PHOSPHATE 50 MG TABLET PO SCH (18:34)
[2016-08-25] MEDS: BUDESONIDE 0.5 MG/2 ML NEB SOLUTION NEB SCH (20:26)
[2016-08-25 20:36] LABS: GLUCOSE COMMENT 1 Received Meds; GLUCOSE,POINT OF CARE 178 MG/DL (70-110)
[2016-08-25] MEDS: OxyCODONE HCL/ACETAMINOPHEN 5-325 MG TABLET PO PRN (20:47)
[2016-08-25] MEDS: INSULIN DETEMIR 100 UNITS/ML SQ SCH (20:51)
[2016-08-25 21:04] VITALS: BP 115/68
[2016-08-26] VITALS (9 sets, daily range): BP systolic 110–155; BP diastolic 49–66
[2016-08-26] MEDS ORDERED: HEPARIN SODIUM,PORCINE 5,000 UNITS/ML VIAL IVP ONE (00:15)
[2016-08-26] MEDS ORDERED: HEPARIN SODIUM,PORCINE 5,000 UNITS/ML VIAL IVP PRN ×2 (00:15)
[2016-08-26 01:10] LABS: EOSINOPHILS % (AUTO) 0 % (1.0-6.0); HEMATOCRIT 21.9 % (41-53); LYMPHOCYTES # (AUTO) 0.5 K/uL (1.0-4.8); LYMPHOCYTES % (AUTO) 2.2 % (22.0-44.0); MEAN CORPUSCULAR HEMOGLOBIN 26.3 pg (26.0-34.0); MEAN CORPUSCULAR HGB CONC 31.5 G/dL (31.0-37.0); MEAN CORPUSCULAR VOLUME 83 fL (80-100); MONOCYTES # (AUTO) 0.9 K/uL (0.1-1.0); MONOCYTES % (AUTO) 3.7 % (2.0-9.0); NEUTROPHILS # (AUTO) 21.8 K/uL (1.8-7.7); PLATELET COUNT (AUTO) 176 K/uL (150-450); RED BLOOD CELL COUNT(AUTO) 2.63 MIL/uL (4.50-5.90); RED CELL DISTRIBUTION WIDTH 16.3 % (11.5-14.5); WHITE BLOOD COUNT (AUTO) 23.1 K/uL (4.5-11.0)
[2016-08-26 01:13] LABS: NEUTROPHILS % (AUTO) 94.1 % (40.0-70.0)
[2016-08-26] MEDS: HEPARIN SODIUM 25000 UNITS/D5W 250 ML IV PRN ×3 (01:16→17:35)
[2016-08-26 01:17] LABS: HEMOGLOBIN 6.9 g/dL (13.5-17.5)
[2016-08-26 01:25] LABS: INR 1.3 (0.9-1.1); PROTHROMBIN TIME 13.3 SEC (9.4-11.6)
[2016-08-26] MEDS ORDERED: 0.9% SODIUM CHLORIDE 5 ML NEB SOLUTION NEB ONE ×4 (02:09→20:04)
[2016-08-26] MEDS: ALBUTEROL SULFATE 2.5 MG/0.5 ML NEB SOLUTION NEB SCH ×4 (02:18→20:18)
[2016-08-26] MEDS: LEVOTHYROXINE SODIUM 75 MCG TABLET PO SCH (05:33)
[2016-08-26] MEDS: INSULIN ASPART 100 UNITS/ML SQ PRN ×4 (05:36→21:47)
[2016-08-26 06:33] LABS: EOSINOPHILS % (AUTO) 0 % (1.0-6.0); HEMATOCRIT 23.9 % (41-53); HEMOGLOBIN 7.4 g/dL (13.5-17.5); LYMPHOCYTES # (AUTO) 0.7 K/uL (1.0-4.8); LYMPHOCYTES % (AUTO) 2.6 % (22.0-44.0); MEAN CORPUSCULAR VOLUME 84 fL (80-100); MONOCYTES # (AUTO) 1.3 K/uL (0.1-1.0); MONOCYTES % (AUTO) 4.9 % (2.0-9.0); PLATELET COUNT (AUTO) 184 K/uL (150-450); RED BLOOD CELL COUNT(AUTO) 2.85 MIL/uL (4.50-5.90); RED CELL DISTRIBUTION WIDTH 15.7 % (11.5-14.5); WHITE BLOOD COUNT (AUTO) 25.9 K/uL (4.5-11.0)
[2016-08-26 06:53] LABS: NEUTROPHILS % (AUTO) 92.5 % (40.0-70.0)
[2016-08-26 06:56] LABS: GLUCOSE COMMENT 1 Received Meds; GLUCOSE,POINT OF CARE 143 MG/DL (70-110)
[2016-08-26 07:05] LABS: CALCIUM, TOTAL 8.5 mg/dL (8.8-10.5); CREATININE 1.79 mg/dL (0.60-1.30); POTASSIUM 5.9 mmol/L (3.5-5.1)
[2016-08-26 07:06] LABS: THYROID STIMULATING HORMONE 1.2 uIU/mL (0.36-3.74)
[2016-08-26] MEDS: BUDESONIDE 0.5 MG/2 ML NEB SOLUTION NEB SCH ×2 (07:39→20:18)
[2016-08-26] MEDS: ALPRAZolam 0.25 MG TABLET PO SCH ×2 (09:31→21:28)
[2016-08-26] MEDS: DIGOXIN 125 MCG TABLET PO SCH (09:31)
[2016-08-26] MEDS: FOLIC ACID 1 MG TABLET PO SCH (09:31)
[2016-08-26] MEDS: AmLODIPine BESYLATE 2.5 MG TABLET PO SCH (09:31)
[2016-08-26] MEDS: PANTOPRAZOLE SODIUM 40 MG DR TABLET PO SCH (09:31)
[2016-08-26] MEDS: FUROSEMIDE 20 MG TABLET PO SCH (09:31)
[2016-08-26] MEDS: ATORVASTATIN CALCIUM 20 MG TABLET PO SCH (09:32)
[2016-08-26] MEDS: METOPROLOL TARTRATE 25 MG TABLET PO SCH ×2 (09:32→21:28)
[2016-08-26 10:38] LABS: ABG A-A DIFF O2 28.1 mmHg (10-20.0); ABG BASE EXCESS 11.1 mmol/L (-2.0-3.0); ABG HCO3 33.5 mmol/L (22.0-26.0); ABG OXYHEMOGLOBIN 96.6 % (94.0-100.0); ABG PH 7.349 (7.35-7.450); TEMPERATURE, FAHRENHEIT, BG 97.6 FAHREN (96.0-98.6)
[2016-08-26 10:39] LABS: ABG PCO2 68 mmHg (35-45); ALLEN TEST, BLOOD GAS Positive
[2016-08-26] MEDS: LOSARTAN POTASSIUM 50 MG TABLET PO SCH (11:23)
[2016-08-26] MEDS ORDERED: SODIUM POLYSTYRENE SULFONATE 15 GM/60 ML SUSPENSION BOTTLE PO ONE ×2 (13:45→16:00)
[2016-08-26] MEDS: SitaGLIPtin PHOSPHATE 50 MG TABLET PO SCH (17:41)
[2016-08-26 19:19] LABS: ABG A-A DIFF O2 31.1 mmHg (10-20.0); ABG HCO3 34.2 mmol/L (22.0-26.0); ABG OXYHEMOGLOBIN 84.1 % (94.0-100.0); ABG PCO2 58 mmHg (35-45); ABG PH 7.417 (7.35-7.450); TEMPERATURE, FAHRENHEIT, BG 98.6 FAHREN (96.0-98.6)
[2016-08-26 19:20] LABS: ALLEN TEST, BLOOD GAS Positive
[2016-08-26] MEDS: BUMETANIDE 0.25 MG/ML 4 ML VIAL IVP SCH (21:27)
[2016-08-26] MEDS: LEVOFLOXACIN 750 MG/D5% WATER 150 ML IV SCH (21:28)
[2016-08-26] MEDS: INSULIN DETEMIR 100 UNITS/ML SQ SCH (21:35)
[2016-08-27] MEDS: HEPARIN SODIUM 25000 UNITS/D5W 250 ML IV PRN ×2 (00:32→07:23)
[2016-08-27] MEDS ORDERED: 0.9% SODIUM CHLORIDE 5 ML NEB SOLUTION NEB ONE ×4 (02:22→19:11)
[2016-08-27] MEDS ORDERED: SODIUM CHLORIDE 0.9% 250 ML IV ONE (02:24)
[2016-08-27] MEDS: ALBUTEROL SULFATE 2.5 MG/0.5 ML NEB SOLUTION NEB SCH ×4 (02:29→19:35)
[2016-08-27] MEDS ORDERED: 0.9% SODIUM CHLORIDE 10 ML SYRINGE IVP PRN (04:00)
[2016-08-27] MEDS: OxyCODONE HCL/ACETAMINOPHEN 5-325 MG TABLET PO PRN ×2 (04:05→21:35)
[2016-08-27 04:47] LABS: GLUCOSE COMMENT 1 Received Meds; GLUCOSE,POINT OF CARE 168 MG/DL (70-110)
[2016-08-27 04:47] LABS: GLUCOSE COMMENT 1 Received Meds; GLUCOSE,POINT OF CARE 184 MG/DL (70-110)
[2016-08-27 04:47] LABS: GLUCOSE COMMENT 1 Received Meds; GLUCOSE,POINT OF CARE 157 MG/DL (70-110)
[2016-08-27 04:56] VITALS: BP 112/59
[2016-08-27] MEDS: DEXTROSE 50%-WATER 25 GM/50 ML SYRINGE IVP PRN (06:12)
[2016-08-27] MEDS: LEVOTHYROXINE SODIUM 75 MCG TABLET PO SCH (06:12)
[2016-08-27 06:58] VITALS: BP 106/39
[2016-08-27 07:08] LABS: EOSINOPHILS % (AUTO) 0.4 % (1.0-6.0); HEMATOCRIT 24.4 % (41-53); HEMOGLOBIN 7.6 g/dL (13.5-17.5); LYMPHOCYTES # (AUTO) 1.3 K/uL (1.0-4.8); LYMPHOCYTES % (AUTO) 9.4 % (22.0-44.0); MEAN CORPUSCULAR HEMOGLOBIN 25.9 pg (26.0-34.0); MEAN CORPUSCULAR HGB CONC 31.1 G/dL (31.0-37.0); MEAN CORPUSCULAR VOLUME 83 fL (80-100); MONOCYTES # (AUTO) 0.9 K/uL (0.1-1.0); MONOCYTES % (AUTO) 6.4 % (2.0-9.0); NEUTROPHILS # (AUTO) 11.4 K/uL (1.8-7.7); NEUTROPHILS % (AUTO) 83.8 % (40.0-70.0); PLATELET COUNT (AUTO) 191 K/uL (150-450); RED BLOOD CELL COUNT(AUTO) 2.93 MIL/uL (4.50-5.90); WHITE BLOOD COUNT (AUTO) 13.6 K/uL (4.5-11.0)
[2016-08-27] MEDS: BUDESONIDE 0.5 MG/2 ML NEB SOLUTION NEB SCH ×2 (07:42→19:35)
[2016-08-27 08:19] VITALS: BP 133/61
[2016-08-27] MEDS: BUMETANIDE 0.25 MG/ML 4 ML VIAL IVP SCH ×2 (08:21→21:34)
[2016-08-27] MEDS: METOPROLOL TARTRATE 25 MG TABLET PO SCH ×2 (08:21→21:34)
[2016-08-27] MEDS: LOSARTAN POTASSIUM 50 MG TABLET PO SCH (08:21)
[2016-08-27] MEDS: ALPRAZolam 0.25 MG TABLET PO SCH ×2 (08:21→21:34)
[2016-08-27] MEDS: FOLIC ACID 1 MG TABLET PO SCH (08:22)
[2016-08-27] MEDS: ATORVASTATIN CALCIUM 20 MG TABLET PO SCH (08:22)
[2016-08-27] MEDS: DIGOXIN 125 MCG TABLET PO SCH (08:22)
[2016-08-27] MEDS: AmLODIPine BESYLATE 2.5 MG TABLET PO SCH (08:28)
[2016-08-27] MEDS: PANTOPRAZOLE SODIUM 40 MG DR TABLET PO SCH (08:36)
[2016-08-27] MEDS: GuaiFENesin/D-METHORPHAN [SUGAR-FREE] 200-20MG/10 ML SYRUP UDCUP PO PRN ×3 (09:51→21:35)
[2016-08-27 11:31] VITALS: BP 128/61
[2016-08-27 15:10] VITALS: BP 115/48
[2016-08-27] MEDS: SitaGLIPtin PHOSPHATE 50 MG TABLET PO SCH (17:52)
[2016-08-27] MEDS: INSULIN ASPART 100 UNITS/ML SQ PRN ×2 (18:40→21:39)
[2016-08-27 19:22] VITALS: BP 135/59
[2016-08-27] MEDS: INSULIN DETEMIR 100 UNITS/ML SQ SCH (21:39)
[2016-08-28] VITALS (7 sets, daily range): BP systolic 117–143; BP diastolic 42–74
[2016-08-28] MEDS: ALBUTEROL SULFATE 2.5 MG/0.5 ML NEB SOLUTION NEB SCH ×4 (02:18→20:02)
[2016-08-28] MEDS: GuaiFENesin/D-METHORPHAN [SUGAR-FREE] 200-20MG/10 ML SYRUP UDCUP PO PRN ×4 (03:50→23:11)
[2016-08-28] MEDS: LEVOTHYROXINE SODIUM 75 MCG TABLET PO SCH (06:00)
[2016-08-28] MEDS: INSULIN ASPART 100 UNITS/ML SQ PRN ×2 (06:03→18:10)
[2016-08-28 07:05] LABS: ALBUMIN 1.9 g/dL (3.4-5.0); BILIRUBIN,TOTAL 0.3 mg/dL (0.1-1.0); CALCIUM, TOTAL 8.1 mg/dL (8.8-10.5); CREATININE 1.73 mg/dL (0.60-1.30); POTASSIUM 4.1 mmol/L (3.5-5.1); TOTAL PROTEIN, SERUM 5.6 g/dL (6.4-8.2)
[2016-08-28 07:22] LABS: GLUCOSE COMMENT 1 Juice/Food/D50 Given; GLUCOSE,POINT OF CARE 39 MG/DL (70-110)
[2016-08-28 07:22] LABS: GLUCOSE,POINT OF CARE 154 MG/DL (70-110)
[2016-08-28] MEDS ORDERED: 0.9% SODIUM CHLORIDE 5 ML NEB SOLUTION NEB ONE ×3 (07:23→19:31)
[2016-08-28 07:26] LABS: GLUCOSE COMMENT 1 Received Meds; GLUCOSE,POINT OF CARE 151 MG/DL (70-110)
[2016-08-28 07:26] LABS: GLUCOSE,POINT OF CARE 135 MG/DL (70-110)
[2016-08-28] MEDS: DEXTROSE 50%-WATER 25 GM/50 ML SYRINGE IVP PRN (07:36)
[2016-08-28] MEDS: BUDESONIDE 0.5 MG/2 ML NEB SOLUTION NEB SCH ×2 (07:36→20:02)
[2016-08-28 09:31] LABS: GLUCOSE,POINT OF CARE 30 MG/DL (70-110)
[2016-08-28] MEDS: FOLIC ACID 1 MG TABLET PO SCH (10:02)
[2016-08-28] MEDS: BUMETANIDE 0.25 MG/ML 4 ML VIAL IVP SCH ×2 (10:02→21:03)
[2016-08-28] MEDS: DIGOXIN 125 MCG TABLET PO SCH (10:02)
[2016-08-28] MEDS: ATORVASTATIN CALCIUM 20 MG TABLET PO SCH (10:03)
[2016-08-28] MEDS: ALPRAZolam 0.25 MG TABLET PO SCH ×2 (10:03→21:27)
[2016-08-28] MEDS: PANTOPRAZOLE SODIUM 40 MG DR TABLET PO SCH (10:03)
[2016-08-28] MEDS: AmLODIPine BESYLATE 2.5 MG TABLET PO SCH (10:03)
[2016-08-28] MEDS: METOPROLOL TARTRATE 25 MG TABLET PO SCH ×2 (10:03→21:00)
[2016-08-28] MEDS: LOSARTAN POTASSIUM 50 MG TABLET PO SCH (11:46)
[2016-08-28 12:22] LABS: ORGANISM ID Not indicated.
[2016-08-28] MEDS ORDERED: APIX2.5T PO (15:24)
[2016-08-28] MEDS ORDERED: BUME1TAB30 PO (15:41)
[2016-08-28] MEDS ORDERED: LEVO750P3 IV (15:45)
[2016-08-28] MEDS: SitaGLIPtin PHOSPHATE 50 MG TABLET PO SCH (17:52)
[2016-08-28] MEDS: APIXABAN 2.5 MG TABLET PO SCH (21:02)
[2016-08-28] MEDS: LEVOFLOXACIN 750 MG/D5% WATER 150 ML IV SCH (21:03)
[2016-08-29] MEDS ORDERED: 0.9% SODIUM CHLORIDE 5 ML NEB SOLUTION NEB ONE ×3 (02:35→20:01)
[2016-08-29] MEDS: ALBUTEROL SULFATE 2.5 MG/0.5 ML NEB SOLUTION NEB SCH ×4 (02:40→20:20)
[2016-08-29 04:52] VITALS: BP 119/84
[2016-08-29 04:57] LABS: GLUCOSE,POINT OF CARE 135 MG/DL (70-110)
[2016-08-29 04:57] LABS: GLUCOSE,POINT OF CARE 123 MG/DL (70-110)
[2016-08-29 04:57] LABS: GLUCOSE COMMENT 1 Received Meds; GLUCOSE,POINT OF CARE 267 MG/DL (70-110)
[2016-08-29] MEDS: LEVOTHYROXINE SODIUM 75 MCG TABLET PO SCH (06:15)
[2016-08-29] MEDS: GuaiFENesin/D-METHORPHAN [SUGAR-FREE] 200-20MG/10 ML SYRUP UDCUP PO PRN ×2 (06:15→18:19)
[2016-08-29] MEDS: INSULIN ASPART 100 UNITS/ML SQ PRN ×4 (06:20→21:20)
[2016-08-29 07:23] LABS: GLUCOSE COMMENT 1 Received Meds; GLUCOSE,POINT OF CARE 221 MG/DL (70-110)
[2016-08-29 07:26] LABS: GLUCOSE COMMENT 1 Received Meds; GLUCOSE,POINT OF CARE 132 MG/DL (70-110)
[2016-08-29 08:25] VITALS: BP 139/52
[2016-08-29] MEDS: BUDESONIDE 0.5 MG/2 ML NEB SOLUTION NEB SCH ×2 (08:33→20:20)
[2016-08-29] MEDS: BUMETANIDE 0.25 MG/ML 4 ML VIAL IVP SCH ×2 (08:38→20:50)
[2016-08-29] MEDS: AmLODIPine BESYLATE 2.5 MG TABLET PO SCH (08:40)
[2016-08-29] MEDS: ATORVASTATIN CALCIUM 20 MG TABLET PO SCH (08:40)
[2016-08-29] MEDS: METOPROLOL TARTRATE 25 MG TABLET PO SCH ×2 (08:40→20:53)
[2016-08-29] MEDS: APIXABAN 2.5 MG TABLET PO SCH ×2 (08:40→20:54)
[2016-08-29] MEDS: LOSARTAN POTASSIUM 50 MG TABLET PO SCH (08:41)
[2016-08-29] MEDS: ALPRAZolam 0.25 MG TABLET PO SCH ×2 (08:41→20:54)
[2016-08-29] MEDS: FOLIC ACID 1 MG TABLET PO SCH (08:41)
[2016-08-29] MEDS: DIGOXIN 125 MCG TABLET PO SCH (08:41)
[2016-08-29] MEDS: PANTOPRAZOLE SODIUM 40 MG DR TABLET PO SCH (08:41)
[2016-08-29 11:26] LABS: GLUCOSE COMMENT 1 Received Meds; GLUCOSE,POINT OF CARE 156 MG/DL (70-110)
[2016-08-29 11:30] VITALS: BP 118/47
[2016-08-29 17:17] VITALS: BP 121/49
[2016-08-29] MEDS: SitaGLIPtin PHOSPHATE 50 MG TABLET PO SCH (18:19)
[2016-08-29 19:17] VITALS: BP 131/50
[2016-08-29 23:59] VITALS: BP 137/57
[2016-08-30] VITALS (13 sets, daily range): BP systolic 107–142; BP diastolic 43–90
[2016-08-30] MEDS ORDERED: 0.9% SODIUM CHLORIDE 5 ML NEB SOLUTION NEB ONE ×4 (02:14→19:12)
[2016-08-30] MEDS: ALBUTEROL SULFATE 2.5 MG/0.5 ML NEB SOLUTION NEB SCH ×4 (02:21→19:45)
[2016-08-30] MEDS: INSULIN ASPART 100 UNITS/ML SQ PRN ×3 (05:51→20:54)
[2016-08-30] MEDS: LEVOTHYROXINE SODIUM 75 MCG TABLET PO SCH (05:51)
[2016-08-30] MEDS: BUDESONIDE 0.5 MG/2 ML NEB SOLUTION NEB SCH ×2 (07:59→19:48)
[2016-08-30 08:02] LABS: GLUCOSE COMMENT 1 Received Meds; GLUCOSE,POINT OF CARE 153 MG/DL (70-110)
[2016-08-30 08:07] LABS: GLUCOSE COMMENT 1 Received Meds; GLUCOSE,POINT OF CARE 173 MG/DL (70-110)
[2016-08-30 08:16] LABS: GLUCOSE COMMENT 1 Received Meds; GLUCOSE,POINT OF CARE 302 MG/DL (70-110)
[2016-08-30] MEDS: BUMETANIDE 0.25 MG/ML 4 ML VIAL IVP SCH ×2 (08:46→20:57)
[2016-08-30] MEDS: LOSARTAN POTASSIUM 50 MG TABLET PO SCH (08:46)
[2016-08-30] MEDS: GuaiFENesin/D-METHORPHAN [SUGAR-FREE] 200-20MG/10 ML SYRUP UDCUP PO PRN (08:46)
[2016-08-30] MEDS: FOLIC ACID 1 MG TABLET PO SCH (08:47)
[2016-08-30] MEDS: DIGOXIN 125 MCG TABLET PO SCH (08:47)
[2016-08-30] MEDS: APIXABAN 2.5 MG TABLET PO SCH (08:47)
[2016-08-30] MEDS: PANTOPRAZOLE SODIUM 40 MG DR TABLET PO SCH (08:47)
[2016-08-30] MEDS: ATORVASTATIN CALCIUM 20 MG TABLET PO SCH (08:47)
[2016-08-30] MEDS: AmLODIPine BESYLATE 2.5 MG TABLET PO SCH (08:47)
[2016-08-30] MEDS: METOPROLOL TARTRATE 25 MG TABLET PO SCH ×2 (08:47→20:57)
[2016-08-30] MEDS: ALPRAZolam 0.25 MG TABLET PO SCH ×2 (08:48→20:57)
[2016-08-30 09:09] LABS: BASOPHILS % (AUTO) 0.2 % (0.0-2.0); EOSINOPHILS % (AUTO) 0.9 % (1.0-6.0); HEMATOCRIT 21.8 % (41-53); LYMPHOCYTES # (AUTO) 0.8 K/uL (1.0-4.8); LYMPHOCYTES % (AUTO) 13.7 % (22.0-44.0); MEAN CORPUSCULAR HEMOGLOBIN 25.8 pg (26.0-34.0); MEAN CORPUSCULAR HGB CONC 30.9 G/dL (31.0-37.0); MEAN CORPUSCULAR VOLUME 83 fL (80-100); MONOCYTES # (AUTO) 0.6 K/uL (0.1-1.0); NEUTROPHILS # (AUTO) 4.6 K/uL (1.8-7.7); NEUTROPHILS % (AUTO) 75.2 % (40.0-70.0); PLATELET COUNT (AUTO) 189 K/uL (150-450); RED BLOOD CELL COUNT(AUTO) 2.61 MIL/uL (4.50-5.90); RED CELL DISTRIBUTION WIDTH 15.7 % (11.5-14.5); WHITE BLOOD COUNT (AUTO) 6.1 K/uL (4.5-11.0)
[2016-08-30 09:12] LABS: HEMOGLOBIN 6.7 g/dL (13.5-17.5)
[2016-08-30] MEDS ORDERED: SODIUM CHLORIDE 0.9% 250 ML IV ONE (17:02)
[2016-08-30] MEDS: SitaGLIPtin PHOSPHATE 50 MG TABLET PO SCH (18:52)
[2016-08-30] MEDS ORDERED: SODIUM CHLORIDE 0.9% 100 ML ONE (20:56)
[2016-08-30] MEDS: LEVOFLOXACIN 750 MG/D5% WATER 150 ML IV SCH (20:57)
[2016-08-31 00:07] VITALS: BP 106/51
[2016-08-31] MEDS: GuaiFENesin/D-METHORPHAN [SUGAR-FREE] 200-20MG/10 ML SYRUP UDCUP PO PRN ×2 (01:21→08:49)
[2016-08-31] MEDS: ALBUTEROL SULFATE 2.5 MG/0.5 ML NEB SOLUTION NEB SCH ×4 (02:00→20:13)
[2016-08-31 04:00] VITALS: BP 127/49
[2016-08-31 05:32] LABS: GLUCOSE COMMENT 1 Received Meds; GLUCOSE,POINT OF CARE 176 MG/DL (70-110)
[2016-08-31 05:37] LABS: GLUCOSE COMMENT 1 Received Meds; GLUCOSE,POINT OF CARE 151 MG/DL (70-110)
[2016-08-31 05:37] LABS: GLUCOSE,POINT OF CARE 127 MG/DL (70-110)
[2016-08-31 05:37] LABS: GLUCOSE COMMENT 1 Received Meds; GLUCOSE,POINT OF CARE 180 MG/DL (70-110)
[2016-08-31 05:37] LABS: GLUCOSE,POINT OF CARE 143 MG/DL (70-110)
[2016-08-31] MEDS: LEVOTHYROXINE SODIUM 75 MCG TABLET PO SCH (05:51)
[2016-08-31] MEDS: INSULIN ASPART 100 UNITS/ML SQ PRN ×3 (05:52→21:35)
[2016-08-31] MEDS ORDERED: 0.9% SODIUM CHLORIDE 5 ML NEB SOLUTION NEB ONE ×3 (07:31→19:57)
[2016-08-31] MEDS: BUDESONIDE 0.5 MG/2 ML NEB SOLUTION NEB SCH ×2 (07:38→20:13)
[2016-08-31 07:43] VITALS: BP 130/55
[2016-08-31 08:26] LABS: BASOPHILS % (AUTO) 0.2 % (0.0-2.0); EOSINOPHILS % (AUTO) 1.3 % (1.0-6.0); HEMATOCRIT 25.9 % (41-53); LYMPHOCYTES % (AUTO) 13.5 % (22.0-44.0); MEAN CORPUSCULAR HEMOGLOBIN 26.3 pg (26.0-34.0); MEAN CORPUSCULAR HGB CONC 31.1 G/dL (31.0-37.0); MEAN CORPUSCULAR VOLUME 85 fL (80-100); MONOCYTES # (AUTO) 0.8 K/uL (0.1-1.0); MONOCYTES % (AUTO) 10.2 % (2.0-9.0); NEUTROPHILS # (AUTO) 5.7 K/uL (1.8-7.7); NEUTROPHILS % (AUTO) 74.8 % (40.0-70.0); PLATELET COUNT (AUTO) 201 K/uL (150-450); RED BLOOD CELL COUNT(AUTO) 3.06 MIL/uL (4.50-5.90); RED CELL DISTRIBUTION WIDTH 15.8 % (11.5-14.5); WHITE BLOOD COUNT (AUTO) 7.6 K/uL (4.5-11.0)
[2016-08-31 08:28] LABS: CALCIUM, TOTAL 8.1 mg/dL (8.8-10.5); CREATININE 1.69 mg/dL (0.60-1.30); POTASSIUM 4.6 mmol/L (3.5-5.1)
[2016-08-31] MEDS: DIGOXIN 125 MCG TABLET PO SCH (08:50)
[2016-08-31] MEDS: PANTOPRAZOLE SODIUM 40 MG DR TABLET PO SCH (08:50)
[2016-08-31] MEDS: AmLODIPine BESYLATE 2.5 MG TABLET PO SCH (08:50)
[2016-08-31] MEDS: ATORVASTATIN CALCIUM 20 MG TABLET PO SCH (08:50)
[2016-08-31] MEDS: FOLIC ACID 1 MG TABLET PO SCH (08:50)
[2016-08-31] MEDS: BUMETANIDE 0.25 MG/ML 4 ML VIAL IVP SCH ×2 (08:50→21:33)
[2016-08-31] MEDS: LOSARTAN POTASSIUM 50 MG TABLET PO SCH (08:51)
[2016-08-31] MEDS: ALPRAZolam 0.25 MG TABLET PO SCH ×2 (08:51→21:33)
[2016-08-31] MEDS: METOPROLOL TARTRATE 25 MG TABLET PO SCH ×2 (08:51→21:34)
[2016-08-31 11:22] VITALS: BP 138/54
[2016-08-31 15:18] VITALS: BP 125/46
[2016-08-31] MEDS: SitaGLIPtin PHOSPHATE 50 MG TABLET PO SCH (18:13)
[2016-08-31 19:45] VITALS: BP 122/58
[2016-08-31 19:56] LABS: GLUCOSE COMMENT 1 Received Meds; GLUCOSE,POINT OF CARE 147 MG/DL (70-110)
[2016-08-31 19:57] LABS: GLUCOSE,POINT OF CARE 129 MG/DL (70-110)
[2016-08-31 20:16] LABS: HEMATOCRIT 26.4 % (41-53); HEMOGLOBIN 8.2 g/dL (13.5-17.5)
[2016-08-31] MEDS: PANTOPRAZOLE SODIUM 40 MG/VIAL IVP SCH (21:33)
[2016-08-31] MEDS: BENZONATATE 100 MG CAPSULE PO SCH (21:34)
[2016-09-01 00:07] VITALS: BP 126/52
[2016-09-01] MEDS: BENZONATATE 100 MG CAPSULE PO SCH ×3 (01:03→18:12)
[2016-09-01 01:32] LABS: GLUCOSE COMMENT 1 Received Meds; GLUCOSE,POINT OF CARE 165 MG/DL (70-110)
[2016-09-01] MEDS ORDERED: 0.9% SODIUM CHLORIDE 5 ML NEB SOLUTION NEB ONE ×2 (01:54→15:05)
[2016-09-01] MEDS: ALBUTEROL SULFATE 2.5 MG/0.5 ML NEB SOLUTION NEB SCH ×4 (02:05→19:51)
[2016-09-01 02:07] LABS: GLUCOSE COMMENT 1 Received Meds; GLUCOSE,POINT OF CARE 269 MG/DL (70-110)
[2016-09-01 04:22] LABS: GLUCOSE COMMENT 1 Received Meds; GLUCOSE,POINT OF CARE 314 MG/DL (70-110)
[2016-09-01 04:43] VITALS: BP 143/56
[2016-09-01] MEDS: LEVOTHYROXINE SODIUM 75 MCG TABLET PO SCH (06:00)
[2016-09-01] MEDS: INSULIN ASPART 100 UNITS/ML SQ PRN ×3 (06:03→18:14)
[2016-09-01 06:59] LABS: BASOPHILS # (AUTO) 0.01 K/uL (0.00-0.20); BASOPHILS % (AUTO) 0.1 % (0.0-2.0); EOSINOPHILS % (AUTO) 1.62 % (1.0-6.0); HEMATOCRIT 25.5 % (41-53); HEMOGLOBIN 8.1 g/dL (13.5-17.5); LYMPHOCYTES % (AUTO) 17.4 % (22.0-44.0); MEAN CORPUSCULAR HEMOGLOBIN 26.5 pg (26.0-34.0); MEAN CORPUSCULAR HGB CONC 31.8 G/dL (31.0-37.0); MEAN CORPUSCULAR VOLUME 84 fL (80-100); MONOCYTES # (AUTO) 0.8 K/uL (0.1-1.0); MONOCYTES % (AUTO) 13.1 % (2.0-9.0); NEUTROPHILS # (AUTO) 4.1 K/uL (1.8-7.7); NEUTROPHILS % (AUTO) 67.8 % (40.0-70.0); PLATELET COUNT (AUTO) 169 K/uL (150-450); RED BLOOD CELL COUNT(AUTO) 3.05 MIL/uL (4.50-5.90); RED CELL DISTRIBUTION WIDTH 16.1 % (11.5-14.5)
[2016-09-01 07:24] LABS: ALBUMIN 1.9 g/dL (3.4-5.0); BILIRUBIN,TOTAL 0.3 mg/dL (0.1-1.0); CALCIUM, TOTAL 8.3 mg/dL (8.8-10.5); CREATININE 1.66 mg/dL (0.60-1.30); MAGNESIUM 1.8 mg/dL (1.80-2.40); POTASSIUM 4.5 mmol/L (3.5-5.1); TOTAL PROTEIN, SERUM 5.8 g/dL (6.4-8.2)
[2016-09-01 07:31] LABS: GLUCOSE COMMENT 1 Received Meds; GLUCOSE,POINT OF CARE 197 MG/DL (70-110)
[2016-09-01 08:39] VITALS: BP 135/56
[2016-09-01] MEDS: BUDESONIDE 0.5 MG/2 ML NEB SOLUTION NEB SCH ×2 (09:12→19:51)
[2016-09-01] MEDS: BUMETANIDE 0.25 MG/ML 4 ML VIAL IVP SCH ×2 (10:21→20:47)
[2016-09-01] MEDS: PANTOPRAZOLE SODIUM 40 MG/VIAL IVP SCH ×2 (10:22→20:48)
[2016-09-01] MEDS: DIGOXIN 125 MCG TABLET PO SCH (10:23)
[2016-09-01] MEDS: FOLIC ACID 1 MG TABLET PO SCH (10:23)
[2016-09-01] MEDS: ATORVASTATIN CALCIUM 20 MG TABLET PO SCH (10:23)
[2016-09-01] MEDS: LOSARTAN POTASSIUM 50 MG TABLET PO SCH (10:23)
[2016-09-01] MEDS: METOPROLOL TARTRATE 25 MG TABLET PO SCH ×2 (10:24→20:47)
[2016-09-01] MEDS: ALPRAZolam 0.25 MG TABLET PO SCH ×2 (10:25→20:47)
[2016-09-01] MEDS: AmLODIPine BESYLATE 2.5 MG TABLET PO SCH (10:25)
[2016-09-01 12:33] LABS: HEMATOCRIT 25.8 % (41-53); HEMOGLOBIN 7.9 g/dL (13.5-17.5)
[2016-09-01 12:47] VITALS: BP 129/60
[2016-09-01 16:41] VITALS: BP 119/46
[2016-09-01 17:28] LABS: HEMATOCRIT 27.2 % (41-53); HEMOGLOBIN 8.5 g/dL (13.5-17.5)
[2016-09-01] MEDS: SitaGLIPtin PHOSPHATE 50 MG TABLET PO SCH (18:13)
[2016-09-01 19:33] VITALS: BP 140/85
[2016-09-01 20:17] LABS: GLUCOSE COMMENT 1 Received Meds; GLUCOSE,POINT OF CARE 186 MG/DL (70-110)
[2016-09-01 20:26] LABS: GLUCOSE COMMENT 1 Received Meds; GLUCOSE,POINT OF CARE 167 MG/DL (70-110)
[2016-09-01] MEDS: LEVOFLOXACIN 750 MG/D5% WATER 150 ML IV SCH (20:47)
[2016-09-01 23:16] LABS: HEMATOCRIT 27.7 % (41-53); HEMOGLOBIN 8.6 g/dL (13.5-17.5)
[2016-09-02] VITALS (9 sets, daily range): BP systolic 95–146; BP diastolic 41–77
[2016-09-02] MEDS: BENZONATATE 100 MG CAPSULE PO SCH ×3 (00:14→16:20)
[2016-09-02 01:02] LABS: GLUCOSE,POINT OF CARE 106 MG/DL (70-110)
[2016-09-02] MEDS ORDERED: 0.9% SODIUM CHLORIDE 5 ML NEB SOLUTION NEB ONE ×3 (02:04→13:46)
[2016-09-02] MEDS: ALBUTEROL SULFATE 2.5 MG/0.5 ML NEB SOLUTION NEB SCH ×4 (02:15→19:50)
[2016-09-02] MEDS: LEVOTHYROXINE SODIUM 75 MCG TABLET PO SCH (06:07)
[2016-09-02 07:13] LABS: BASOPHILS % (AUTO) 0.2 % (0.0-2.0); EOSINOPHILS % (AUTO) 0.6 % (1.0-6.0); HEMOGLOBIN 8.5 g/dL (13.5-17.5); LYMPHOCYTES # (AUTO) 0.9 K/uL (1.0-4.8); LYMPHOCYTES % (AUTO) 12.6 % (22.0-44.0); MEAN CORPUSCULAR HEMOGLOBIN 26.4 pg (26.0-34.0); MEAN CORPUSCULAR HGB CONC 31.3 G/dL (31.0-37.0); MEAN CORPUSCULAR VOLUME 84 fL (80-100); MONOCYTES # (AUTO) 0.9 K/uL (0.1-1.0); MONOCYTES % (AUTO) 11.6 % (2.0-9.0); NEUTROPHILS # (AUTO) 5.5 K/uL (1.8-7.7); PLATELET COUNT (AUTO) 203 K/uL (150-450); RED BLOOD CELL COUNT(AUTO) 3.21 MIL/uL (4.50-5.90); RED CELL DISTRIBUTION WIDTH 15.4 % (11.5-14.5); WHITE BLOOD COUNT (AUTO) 7.3 K/uL (4.5-11.0)
[2016-09-02 07:23] LABS: GLUCOSE COMMENT 1 Received Meds; GLUCOSE,POINT OF CARE 191 MG/DL (70-110)
[2016-09-02 07:35] LABS: ALBUMIN 2.1 g/dL (3.4-5.0); BILIRUBIN,TOTAL 0.4 mg/dL (0.1-1.0); CALCIUM, TOTAL 8.1 mg/dL (8.8-10.5); CREATININE 1.62 mg/dL (0.60-1.30); MAGNESIUM 1.6 mg/dL (1.80-2.40); TOTAL PROTEIN, SERUM 6.1 g/dL (6.4-8.2)
[2016-09-02] MEDS: METOPROLOL TARTRATE 25 MG TABLET PO SCH ×2 (09:00→21:30)
[2016-09-02] MEDS: BUDESONIDE 0.5 MG/2 ML NEB SOLUTION NEB SCH ×2 (09:04→19:50)
[2016-09-02] MEDS: GuaiFENesin/D-METHORPHAN [SUGAR-FREE] 200-20MG/10 ML SYRUP UDCUP PO PRN ×3 (09:35→23:48)
[2016-09-02] MEDS: OxyCODONE HCL/ACETAMINOPHEN 5-325 MG TABLET PO PRN ×3 (09:35→23:53)
[2016-09-02] MEDS: AmLODIPine BESYLATE 2.5 MG TABLET PO SCH (09:36)
[2016-09-02] MEDS: ATORVASTATIN CALCIUM 20 MG TABLET PO SCH (09:36)
[2016-09-02] MEDS: ALPRAZolam 0.25 MG TABLET PO SCH ×2 (09:36→21:31)
[2016-09-02] MEDS: FOLIC ACID 1 MG TABLET PO SCH (09:36)
[2016-09-02] MEDS: BUMETANIDE 0.25 MG/ML 4 ML VIAL IVP SCH ×2 (09:36→21:28)
[2016-09-02] MEDS: PANTOPRAZOLE SODIUM 40 MG/VIAL IVP SCH ×2 (09:36→21:28)
[2016-09-02] MEDS: LOSARTAN POTASSIUM 50 MG TABLET PO SCH (09:36)
[2016-09-02] MEDS: DIGOXIN 125 MCG TABLET PO SCH (09:37)
[2016-09-02] MEDS ORDERED: DOBUTamine HCL/D5W 500 MG/250 ML IV BAG [STRESS LAB ONLY] IV ONE (11:01)
[2016-09-02] MEDS: INSULIN ASPART 100 UNITS/ML SQ PRN ×2 (12:21→18:26)
[2016-09-02] MEDS ORDERED: DOBUTamine HCL/D5W 500 MG/250 ML IV BAG IV ONE (12:52)
[2016-09-02] MEDS ORDERED: MAGNESIUM SULFATE 3 GM in DEXTROSE 5%-WATER 100 ML IV ONE (14:00)
[2016-09-02 15:08] LABS: HEMATOCRIT 30.7 % (41-53); HEMOGLOBIN 9.6 g/dL (13.5-17.5)
[2016-09-02] MEDS ORDERED: SODIUM CHLORIDE 0.9% 100 ML ONE (16:09)
[2016-09-02] MEDS: SitaGLIPtin PHOSPHATE 50 MG TABLET PO SCH (17:25)
[2016-09-02 20:40] LABS: HEMATOCRIT 27.2 % (41-53); HEMOGLOBIN 8.5 g/dL (13.5-17.5)
[2016-09-03] MEDS ORDERED: LIDOCAINE HCL/PF 2% 5 ML VIAL INJ ONE
[2016-09-03] MEDS ORDERED: PROPOFOL 1% 20 ML VIAL IVP ONE
[2016-09-03] MEDS: BENZONATATE 100 MG CAPSULE PO SCH ×4 (00:56→23:48)
[2016-09-03] MEDS ORDERED: 0.9% SODIUM CHLORIDE 5 ML NEB SOLUTION NEB ONE ×3 (02:01→20:05)
[2016-09-03] MEDS: ALBUTEROL SULFATE 2.5 MG/0.5 ML NEB SOLUTION NEB SCH ×4 (02:18→20:05)
[2016-09-03 04:12] LABS: GLUCOSE,POINT OF CARE 148 MG/DL (70-110)
[2016-09-03 04:16] LABS: GLUCOSE COMMENT 1 Received Meds; GLUCOSE,POINT OF CARE 145 MG/DL (70-110)
[2016-09-03 04:22] LABS: GLUCOSE COMMENT 1 Received Meds; GLUCOSE,POINT OF CARE 173 MG/DL (70-110)
[2016-09-03 04:35] VITALS: BP 122/58
[2016-09-03] MEDS: LEVOTHYROXINE SODIUM 75 MCG TABLET PO SCH (06:04)
[2016-09-03 06:47] LABS: GLUCOSE,POINT OF CARE 257 MG/DL (70-110)
[2016-09-03 06:51] LABS: BASOPHILS % (AUTO) 0.2 % (0.0-2.0); HEMATOCRIT 25.9 % (41-53); LYMPHOCYTES % (AUTO) 17.5 % (22.0-44.0); MEAN CORPUSCULAR HEMOGLOBIN 26.3 pg (26.0-34.0); MEAN CORPUSCULAR VOLUME 85 fL (80-100); MONOCYTES # (AUTO) 0.9 K/uL (0.1-1.0); MONOCYTES % (AUTO) 14.9 % (2.0-9.0); NEUTROPHILS # (AUTO) 3.9 K/uL (1.8-7.7); NEUTROPHILS % (AUTO) 66.4 % (40.0-70.0); PLATELET COUNT (AUTO) 184 K/uL (150-450); RED BLOOD CELL COUNT(AUTO) 3.05 MIL/uL (4.50-5.90); RED CELL DISTRIBUTION WIDTH 14.9 % (11.5-14.5); WHITE BLOOD COUNT (AUTO) 5.9 K/uL (4.5-11.0)
[2016-09-03 07:02] LABS: GLUCOSE COMMENT 1 Received Meds; GLUCOSE,POINT OF CARE 226 MG/DL (70-110)
[2016-09-03 07:12] VITALS: BP 121/50
[2016-09-03 07:33] LABS: CREATININE 1.97 mg/dL (0.60-1.30); MAGNESIUM 2.6 mg/dL (1.80-2.40); POTASSIUM 4.4 mmol/L (3.5-5.1)
[2016-09-03] MEDS: BUDESONIDE 0.5 MG/2 ML NEB SOLUTION NEB SCH ×2 (08:10→20:06)
[2016-09-03] MEDS: PANTOPRAZOLE SODIUM 40 MG/VIAL IVP SCH ×2 (09:00→21:13)
[2016-09-03] MEDS: BUMETANIDE 0.25 MG/ML 4 ML VIAL IVP SCH ×2 (09:00→21:16)
[2016-09-03] MEDS: METOPROLOL TARTRATE 25 MG TABLET PO SCH ×2 (09:00→21:16)
[2016-09-03] MEDS: ALPRAZolam 0.25 MG TABLET PO SCH ×2 (09:00→21:15)
[2016-09-03 10:23] LABS: HEMATOCRIT 27.8 % (41-53); HEMOGLOBIN 8.6 g/dL (13.5-17.5)
[2016-09-03 11:14] VITALS: BP 127/53
[2016-09-03] MEDS: INSULIN ASPART 100 UNITS/ML SQ PRN ×3 (12:09→21:12)
[2016-09-03] MEDS ORDERED: SODIUM CHLORIDE 0.9% 1,000 ML IV ONE ×2 (12:27→12:30)
[2016-09-03 13:27] LABS: GLUCOSE,POINT OF CARE 142 MG/DL (70-110)
[2016-09-03 15:32] VITALS: BP 143/59
[2016-09-03] MEDS: AmLODIPine BESYLATE 2.5 MG TABLET PO SCH (15:33)
[2016-09-03] MEDS: LOSARTAN POTASSIUM 50 MG TABLET PO SCH (15:33)
[2016-09-03] MEDS: FOLIC ACID 1 MG TABLET PO SCH (15:33)
[2016-09-03] MEDS: ATORVASTATIN CALCIUM 20 MG TABLET PO SCH (15:33)
[2016-09-03] MEDS: DIGOXIN 125 MCG TABLET PO SCH (15:33)
[2016-09-03] MEDS: GuaiFENesin/D-METHORPHAN [SUGAR-FREE] 200-20MG/10 ML SYRUP UDCUP PO PRN ×2 (15:36→21:10)
[2016-09-03] MEDS: OxyCODONE HCL/ACETAMINOPHEN 5-325 MG TABLET PO PRN (15:39)
[2016-09-03 17:20] LABS: ABG A-A DIFF O2 31.3 mmHg (10-20.0); ABG BASE EXCESS 14.8 mmol/L (-2.0-3.0); ABG HCO3 36.6 mmol/L (22.0-26.0); ABG OXYHEMOGLOBIN 80.8 % (94.0-100.0); ABG PCO2 61 mmHg (35-45); ABG PH 7.427 (7.35-7.450); TEMPERATURE, FAHRENHEIT, BG 97.7 FAHREN (96.0-98.6)
[2016-09-03 17:21] LABS: ALLEN TEST, BLOOD GAS Positive
[2016-09-03] MEDS: SitaGLIPtin PHOSPHATE 50 MG TABLET PO SCH (18:00)
[2016-09-03 19:42] VITALS: BP 120/47
[2016-09-03] MEDS ORDERED: OXYGEN THERAPY IH SCH (20:00)
[2016-09-03 21:01] LABS: GLUCOSE,POINT OF CARE 198 MG/DL (70-110)
[2016-09-03] MEDS: LEVOFLOXACIN 750 MG/D5% WATER 150 ML IV SCH (21:11)
[2016-09-03 23:35] VITALS: BP 123/55
[2016-09-04] MEDS ORDERED: 0.9% SODIUM CHLORIDE 5 ML NEB SOLUTION NEB ONE ×3 (02:03→13:54)
[2016-09-04] MEDS: ALBUTEROL SULFATE 2.5 MG/0.5 ML NEB SOLUTION NEB SCH ×3 (02:08→14:12)
[2016-09-04] MEDS: OxyCODONE HCL/ACETAMINOPHEN 5-325 MG TABLET PO PRN ×2 (03:11→08:44)
[2016-09-04] MEDS: GuaiFENesin/D-METHORPHAN [SUGAR-FREE] 200-20MG/10 ML SYRUP UDCUP PO PRN ×3 (03:13→16:09)
[2016-09-04 03:55] VITALS: BP 136/49
[2016-09-04 04:22] LABS: GLUCOSE,POINT OF CARE 148 MG/DL (70-110)
[2016-09-04] MEDS: LEVOTHYROXINE SODIUM 75 MCG TABLET PO SCH (06:18)
[2016-09-04] MEDS: INSULIN ASPART 100 UNITS/ML SQ PRN ×2 (06:20→12:17)
[2016-09-04 07:37] LABS: GLUCOSE COMMENT 1 Received Meds; GLUCOSE,POINT OF CARE 176 MG/DL (70-110)
[2016-09-04 07:50] VITALS: BP 128/60
[2016-09-04] MEDS: PANTOPRAZOLE SODIUM 40 MG/VIAL IVP SCH ×2 (08:42→09:00)
[2016-09-04] MEDS: BENZONATATE 100 MG CAPSULE PO SCH (08:42)
[2016-09-04] MEDS: BUMETANIDE 0.25 MG/ML 4 ML VIAL IVP SCH ×2 (08:42→09:00)
[2016-09-04] MEDS: ATORVASTATIN CALCIUM 20 MG TABLET PO SCH (08:43)
[2016-09-04] MEDS: METOPROLOL TARTRATE 25 MG TABLET PO SCH (08:43)
[2016-09-04] MEDS: FOLIC ACID 1 MG TABLET PO SCH (08:43)
[2016-09-04] MEDS: DIGOXIN 125 MCG TABLET PO SCH (08:43)
[2016-09-04] MEDS: ALPRAZolam 0.25 MG TABLET PO SCH (08:44)
[2016-09-04] MEDS: AmLODIPine BESYLATE 2.5 MG TABLET PO SCH (08:44)
[2016-09-04 08:48] LABS: GLUCOSE,POINT OF CARE 145 MG/DL (70-110)
[2016-09-04] MEDS: LOSARTAN POTASSIUM 50 MG TABLET PO SCH (09:36)
[2016-09-04 10:45] VITALS: BP 136/67
[2016-09-04] MEDS ORDERED: BUMETANIDE 1 MG TABLET PO ONE (11:00)
[2016-09-04 14:52] LABS: GLUCOSE,POINT OF CARE 178 MG/DL (70-110)
[2016-09-04 15:40] VITALS: BP 130/52
[2016-09-05] MEDS ORDERED: ASPIRIN 81 MG CHEWABLE TABLET PO SCH (09:00)
[2016-09-12 16:48] LABS: GLUCOSE COMMENT 1 Received Meds; GLUCOSE,POINT OF CARE 174 MG/DL (70-110)
[2016-09-12 18:17] LABS: GLUCOSE,POINT OF CARE 176 MG/DL (70-110)
[2016-09-12 18:17] LABS: GLUCOSE COMMENT 1 Received Meds; GLUCOSE,POINT OF CARE 182 MG/DL (70-110)
== END 2016-09-04 16:15 | disposition home health service (06) | DRG 377 ==
LOC: EMS 17:45 → EDBD 17:45 → 5N 20:00 → EDBD 20:00
PROVIDERS: ADMIT Hospitalist; ATTEND Hospitalist
PROC: 30233N1 Transfusion of Nonautologous Red Blood Cells into Peripheral Vein, Percutaneous Approach (ICD-10-PCS; 2016-08-30)
PROC: 0DJ08ZZ Inspection of Upper Intestinal Tract, Via Natural or Artificial Opening Endoscopic (ICD-10-PCS; principal; 2016-09-03 14:00)
DX: K92.2 Gastrointestinal hemorrhage, unspecified (principal); J18.9 Pneumonia, unspecified organism; E43 Unspecified severe protein-calorie malnutrition; J96.02 Acute respiratory failure with hypercapnia; J96.01 Acute respiratory failure with hypoxia; N17.0 Acute kidney failure with tubular necrosis; J44.0 Chronic obstructive pulmonary disease with (acute) lower respiratory infection; I50.32 Chronic diastolic (congestive) heart failure; J44.1 Chronic obstructive pulmonary disease with (acute) exacerbation; I13.0 Hypertensive heart and chronic kidney disease with heart failure and stage 1 through stage 4 chronic kidney disease, or unspecified chronic kidney disease; I48.91 Unspecified atrial fibrillation; E78.5 Hyperlipidemia, unspecified; D50.9 Iron deficiency anemia, unspecified; E03.9 Hypothyroidism, unspecified; E11.22 Type 2 diabetes mellitus with diabetic chronic kidney disease; E11.649 Type 2 diabetes mellitus with hypoglycemia without coma; E87.5 Hyperkalemia; N18.9 Chronic kidney disease, unspecified; F41.9 Anxiety disorder, unspecified; J84.10 Pulmonary fibrosis, unspecified; E83.42 Hypomagnesemia; Z79.82 Long term (current) use of aspirin; Z79.4 Long term (current) use of insulin; Z79.899 Other long term (current) drug therapy; I25.2 Old myocardial infarction; Z68.20 Body mass index [BMI] 20.0-20.9, adult; Z87.891 Personal history of nicotine dependence; Z79.01 Long term (current) use of anticoagulants
CPT/HCPCS: 71020; 71250; 82270; 82271; 82306; 82607; 82746; 82805; 82962; 83036; 83540; 83550; 83605; 83735; 84100; 84443; 85014; 85018; 86850; 86900; 86901; 86922; 87040; 87081; 87449; 87899; 92610; 93005; 93017; 93306; 93350; 94640; 94644; 94667; 94668; 96365; 96375; 97116; 97163; 97530; 99291; C9113; J1250; J1644; J1940; J1956; J2704; J2930; J3475; J3490; J7030; J7050; J7060; P9016

== ENCOUNTER 2016-09-09 23:29 | Inpatient (IN) | payer MEDICARE, OTHER ==
[~2016-09-09] VITALS: Ht 162.6 cm; Wt 54.4 kg
[~2016-09-09 23:29] MED LIST changes: +ADV250 IH; -ALBU8HFA IH; +ALPR0.255 PO; +AMLO2.5T PO; -AMLO5TAB66 PO; -AMOX1TAB15 PO; +APIX2.5T PO; +BUME1TAB30 PO; +DIGO125T PO; -DOXY100C PO; +FLUT16H NASAL; +LEVO750P3 IV; -MULT-248 PO
[2016-09-09 23:57] LABS: EOSINOPHILS % (AUTO) 0.2 % (1.0-6.0); HEMATOCRIT 30.4 % (41-53); HEMOGLOBIN 9.3 g/dL (13.5-17.5); LYMPHOCYTES # (AUTO) 0.8 K/uL (1.0-4.8); MEAN CORPUSCULAR HEMOGLOBIN 26.1 pg (26.0-34.0); MEAN CORPUSCULAR HGB CONC 30.5 G/dL (31.0-37.0); MEAN CORPUSCULAR VOLUME 86 fL (80-100); MONOCYTES # (AUTO) 0.7 K/uL (0.1-1.0); MONOCYTES % (AUTO) 5.5 % (2.0-9.0); NEUTROPHILS # (AUTO) 10.6 K/uL (1.8-7.7); PLATELET COUNT (AUTO) 198 K/uL (150-450); RED BLOOD CELL COUNT(AUTO) 3.55 MIL/uL (4.50-5.90); RED CELL DISTRIBUTION WIDTH 15.4 % (11.5-14.5); WHITE BLOOD COUNT (AUTO) 12.2 K/uL (4.5-11.0)
[2016-09-10 00:08] LABS: PROTHROMBIN TIME 10.9 SEC (9.4-11.6)
[2016-09-10 00:12] LABS: GLUCOSE,POINT OF CARE 174 MG/DL (70-110)
[2016-09-10 00:15] LABS: NEUTROPHILS % (AUTO) 87.3 % (40.0-70.0)
[2016-09-10 00:26] LABS: TROPONIN I < 0.02 ng/mL (0.00-0.05)
[2016-09-10 00:43] LABS: CALCIUM, TOTAL 8.5 mg/dL (8.8-10.5); CREATININE 1.57 mg/dL (0.60-1.30); POTASSIUM 3.7 mmol/L (3.5-5.1)
[2016-09-10 00:45] LABS: ALBUMIN 2.6 g/dL (3.4-5.0); BILIRUBIN,TOTAL 0.3 mg/dL (0.1-1.0); TOTAL PROTEIN, SERUM 7.3 g/dL (6.4-8.2)
[2016-09-10 01:01] LABS: APPEARANCE,URINE CLEAR (CLEAR); GLUCOSE, URINE (UA) NEGATIVE (NEGATIVE); KETONES,URINE NEGATIVE (NEGATIVE); LEUKOCYTE ESTERASE ,URINE NEGATIVE (NEGATIVE); OCCULT BLOOD,URINE NEGATIVE (NEGATIVE); PROTEIN,URINE SEE CONFIRM (NEGATIVE)
[2016-09-10 01:05] LABS: AMMONIA < 10 umol/L (11-32)
[2016-09-10 01:06] LABS: ADD UA MICROSCOPIC YES
[2016-09-10 01:15] LABS: SULFOSALICYLIC ACID,URINE 3+ (Negative)
[2016-09-10 01:16] LABS: WBC,URINE 0-2 /HPF (0-5)
[2016-09-10 01:17] LABS: FINE GRANULAR CASTS,URINE 0-2 /LPF (None Seen)
[2016-09-10 01:26] LABS: THYROID STIMULATING HORMONE 3.55 uIU/mL (0.36-3.74)
[2016-09-10 01:27] LABS: TEMPERATURE, FAHRENHEIT, BG 95.7 FAHREN (96.0-98.6)
[2016-09-10 01:30] LABS: ABG BASE EXCESS 5.9 mmol/L (-2.0-3.0); ABG OXYHEMOGLOBIN 97.7 % (94.0-100.0); ABG PCO2 58 mmHg (35-45); ABG PH 7.352 (7.35-7.450)
[2016-09-10 01:31] LABS: ALLEN TEST, BLOOD GAS POSITIVE
[2016-09-10] MEDS ORDERED: DEXTROSE 5%-0.45% SODIUM CHL 500 ML IV ONE (01:45)
[2016-09-10] MEDS ORDERED: DEXTROSE 50%-WATER 25 GM/50 ML SYRINGE IVP ONE ×3 (01:45→06:05)
[2016-09-10 02:01] LABS: GLUCOSE COMMENT 1 Doctor Notified; GLUCOSE,POINT OF CARE 44 MG/DL (70-110)
[2016-09-10 02:17] LABS: DIGOXIN 1.66 ng/mL (0.90-2.00)
[2016-09-10 04:02] LABS: GLUCOSE,POINT OF CARE 110 MG/DL (70-110)
[2016-09-10 06:35] VITALS: BP 147/58
[2016-09-10] MEDS ORDERED: IPRATROPIUM BROMIDE 0.5 MG/2.5 ML NEB SOLUTION NEB PRN (08:00)
[2016-09-10] MEDS ORDERED: ZOLPIDEM TARTRATE 5 MG TABLET PO PRN (08:00)
[2016-09-10] MEDS ORDERED: MAGNESIUM HYDROXIDE SUSPENSION 30 ML UDCUP PO PRN (08:00)
[2016-09-10] MEDS ORDERED: ALBUTEROL SULFATE 2.5 MG/0.5 ML NEB SOLUTION NEB PRN (08:00)
[2016-09-10] MEDS ORDERED: BISACODYL 10 MG RECTAL RECTAL SUPPOSITORY PR PRN (08:00)
[2016-09-10] MEDS ORDERED: ONDANSETRON HCL 4 MG/2 ML VIAL IVP PRN (08:00)
[2016-09-10] MEDS ORDERED: ACETAMINOPHEN 325 MG TABLET PO PRN (08:00)
[2016-09-10] MEDS ORDERED: INSULIN ASPART 100 UNITS/ML SQ PRN (08:15)
[2016-09-10] MEDS ORDERED: DEXTROSE 50%-WATER 25 GM/50 ML SYRINGE IVP PRN (08:15)
[2016-09-10 08:18] VITALS: BP 146/58
[2016-09-10] MEDS ORDERED: HEPARIN SODIUM,PORCINE 5,000 UNITS/ML VIAL SQ SCH (09:00)
[2016-09-10] MEDS: DIGOXIN 125 MCG TABLET PO SCH (09:25)
[2016-09-10] MEDS: ATORVASTATIN CALCIUM 20 MG TABLET PO SCH (09:25)
[2016-09-10] MEDS: LOSARTAN POTASSIUM 50 MG TABLET PO SCH (09:25)
[2016-09-10] MEDS: FOLIC ACID 1 MG TABLET PO SCH (09:25)
[2016-09-10] MEDS: ALPRAZolam 0.25 MG TABLET PO SCH ×2 (09:25→21:22)
[2016-09-10] MEDS: METOPROLOL TARTRATE 25 MG TABLET PO SCH ×2 (09:26→21:00)
[2016-09-10] MEDS: PANTOPRAZOLE SODIUM 40 MG DR TABLET PO SCH (09:26)
[2016-09-10] MEDS: FLUTICASONE PROPIONATE 50 MCG/SPRAY 16 GM NASAL SPRAY NASAL SCH (09:26)
[2016-09-10] MEDS: AmLODIPine BESYLATE 2.5 MG TABLET PO SCH (09:26)
[2016-09-10] MEDS: APIXABAN 2.5 MG TABLET PO SCH ×2 (09:27→21:22)
[2016-09-10] MEDS: OxyCODONE HCL/ACETAMINOPHEN 5-325 MG TABLET PO PRN ×2 (09:39→20:08)
[2016-09-10 10:54] VITALS: BP 143/63
[2016-09-10] MEDS: BUMETANIDE 0.25 MG/ML 4 ML VIAL IVP SCH (13:12)
[2016-09-10] MEDS: GuaiFENesin/D-METHORPHAN [SUGAR-FREE] 200-20MG/10 ML SYRUP UDCUP PO PRN (13:13)
[2016-09-10 15:21] VITALS: BP 134/53
[2016-09-10 19:30] VITALS: BP 117/69
[2016-09-10 23:16] VITALS: BP 118/41
[2016-09-11 04:13] VITALS: BP 133/50
[2016-09-11] MEDS: LEVOTHYROXINE SODIUM 75 MCG TABLET PO SCH (06:26)
[2016-09-11 07:05] VITALS: BP 136/47
[2016-09-11 08:36] LABS: ALBUMIN 2.2 g/dL (3.4-5.0); BILIRUBIN,TOTAL 0.3 mg/dL (0.1-1.0); CHOL/HDL RATIO 1.6 (4.2-7.3); CREATININE 1.75 mg/dL (0.60-1.30); MAGNESIUM 1.9 mg/dL (1.80-2.40); PHOSPHORUS 4.7 mg/dL (2.5-4.9); POTASSIUM 4.5 mmol/L (3.5-5.1); THYROID STIMULATING HORMONE 3.86 uIU/mL (0.36-3.74); TOTAL PROTEIN, SERUM 6.6 g/dL (6.4-8.2)
[2016-09-11] MEDS: FLUTICASONE PROPIONATE 50 MCG/SPRAY 16 GM NASAL SPRAY NASAL SCH (08:41)
[2016-09-11] MEDS: BUMETANIDE 0.25 MG/ML 4 ML VIAL IVP SCH (08:42)
[2016-09-11] MEDS: LOSARTAN POTASSIUM 50 MG TABLET PO SCH (08:42)
[2016-09-11] MEDS: PANTOPRAZOLE SODIUM 40 MG DR TABLET PO SCH (08:42)
[2016-09-11] MEDS: AmLODIPine BESYLATE 2.5 MG TABLET PO SCH (08:42)
[2016-09-11] MEDS: ATORVASTATIN CALCIUM 20 MG TABLET PO SCH (08:42)
[2016-09-11] MEDS: ALPRAZolam 0.25 MG TABLET PO SCH ×2 (08:42→20:55)
[2016-09-11] MEDS: METOPROLOL TARTRATE 25 MG TABLET PO SCH ×2 (08:43→20:55)
[2016-09-11] MEDS: FOLIC ACID 1 MG TABLET PO SCH (08:43)
[2016-09-11] MEDS: APIXABAN 2.5 MG TABLET PO SCH ×2 (08:43→20:55)
[2016-09-11] MEDS: DIGOXIN 125 MCG TABLET PO SCH (08:43)
[2016-09-11 08:47] LABS: BASOPHILS % (AUTO) 0.2 % (0.0-2.0); EOSINOPHILS % (AUTO) 1.4 % (1.0-6.0); HEMATOCRIT 30.5 % (41-53); HEMOGLOBIN 9.3 g/dL (13.5-17.5); LYMPHOCYTES # (AUTO) 1.2 K/uL (1.0-4.8); MEAN CORPUSCULAR HGB CONC 30.4 G/dL (31.0-37.0); MEAN CORPUSCULAR VOLUME 86 fL (80-100); MONOCYTES % (AUTO) 11.1 % (2.0-9.0); NEUTROPHILS % (AUTO) 74.3 % (40.0-70.0); PLATELET COUNT (AUTO) 142 K/uL (150-450); RED BLOOD CELL COUNT(AUTO) 3.57 MIL/uL (4.50-5.90); RED CELL DISTRIBUTION WIDTH 15.3 % (11.5-14.5); WHITE BLOOD COUNT (AUTO) 9.4 K/uL (4.5-11.0)
[2016-09-11] MEDS: GuaiFENesin/D-METHORPHAN [SUGAR-FREE] 200-20MG/10 ML SYRUP UDCUP PO PRN ×2 (08:50→20:55)
[2016-09-11] MEDS: OxyCODONE HCL/ACETAMINOPHEN 5-325 MG TABLET PO PRN ×2 (08:52→20:55)
[2016-09-11 11:01] VITALS: BP 126/49
[2016-09-11 12:57] LABS: GLUCOSE COMMENT 1 Repeated; GLUCOSE,POINT OF CARE 37 MG/DL (70-110)
[2016-09-11 12:57] LABS: GLUCOSE,POINT OF CARE 221 MG/DL (70-110)
[2016-09-11 12:57] LABS: GLUCOSE COMMENT 1 Received Meds; GLUCOSE,POINT OF CARE 228 MG/DL (70-110)
[2016-09-11 13:02] LABS: GLUCOSE,POINT OF CARE 86 MG/DL (70-110)
[2016-09-11 13:02] LABS: GLUCOSE,POINT OF CARE 83 MG/DL (70-110)
[2016-09-11 15:19] VITALS: BP 131/50
[2016-09-11 20:07] VITALS: BP 148/55
[2016-09-11 23:30] VITALS: BP 134/56
[2016-09-12] MEDS: OxyCODONE HCL/ACETAMINOPHEN 5-325 MG TABLET PO PRN (04:01)
[2016-09-12] MEDS: GuaiFENesin/D-METHORPHAN [SUGAR-FREE] 200-20MG/10 ML SYRUP UDCUP PO PRN (04:10)
[2016-09-12 04:16] VITALS: BP 139/53
[2016-09-12] MEDS: LEVOTHYROXINE SODIUM 75 MCG TABLET PO SCH (06:42)
[2016-09-12 07:16] VITALS: BP 144/56
[2016-09-12] MEDS: LOSARTAN POTASSIUM 50 MG TABLET PO SCH (08:40)
[2016-09-12] MEDS: BUMETANIDE 0.25 MG/ML 4 ML VIAL IVP SCH (08:40)
[2016-09-12] MEDS: APIXABAN 2.5 MG TABLET PO SCH (08:40)
[2016-09-12] MEDS: FLUTICASONE PROPIONATE 50 MCG/SPRAY 16 GM NASAL SPRAY NASAL SCH (08:40)
[2016-09-12] MEDS: FOLIC ACID 1 MG TABLET PO SCH (08:41)
[2016-09-12] MEDS: ATORVASTATIN CALCIUM 20 MG TABLET PO SCH (08:41)
[2016-09-12] MEDS: PANTOPRAZOLE SODIUM 40 MG DR TABLET PO SCH (08:41)
[2016-09-12] MEDS: METOPROLOL TARTRATE 25 MG TABLET PO SCH (08:41)
[2016-09-12] MEDS: AmLODIPine BESYLATE 2.5 MG TABLET PO SCH (08:41)
[2016-09-12] MEDS: ALPRAZolam 0.25 MG TABLET PO SCH (08:41)
[2016-09-12] MEDS: DIGOXIN 125 MCG TABLET PO SCH (08:41)
[2016-09-12 11:31] VITALS: BP 147/46
[2016-09-12 11:32] LABS: GLUCOSE COMMENT 1 Received Meds; GLUCOSE,POINT OF CARE 167 MG/DL (70-110)
[2016-09-12 11:32] LABS: GLUCOSE,POINT OF CARE 199 MG/DL (70-110)
== END 2016-09-12 15:40 | disposition home or self-care (01) | DRG 637 ==
LOC: EMS 23:33 → 5S 09-10 05:40
PROVIDERS: ADMIT Internal Medicine; ATTEND Internal Medicine
DX: E11.649 Type 2 diabetes mellitus with hypoglycemia without coma (principal); E43 Unspecified severe protein-calorie malnutrition; I13.0 Hypertensive heart and chronic kidney disease with heart failure and stage 1 through stage 4 chronic kidney disease, or unspecified chronic kidney disease; N17.9 Acute kidney failure, unspecified; I48.91 Unspecified atrial fibrillation; J44.9 Chronic obstructive pulmonary disease, unspecified; N18.3 Chronic kidney disease, stage 3 (moderate); D50.9 Iron deficiency anemia, unspecified; E03.9 Hypothyroidism, unspecified; E55.9 Vitamin D deficiency, unspecified; I50.9 Heart failure, unspecified; I48.2 Chronic atrial fibrillation; E78.5 Hyperlipidemia, unspecified; I25.10 Atherosclerotic heart disease of native coronary artery without angina pectoris; K21.9 Gastro-esophageal reflux disease without esophagitis; E11.65 Type 2 diabetes mellitus with hyperglycemia; E11.22 Type 2 diabetes mellitus with diabetic chronic kidney disease; I25.2 Old myocardial infarction; R53.81 Other malaise; F17.210 Nicotine dependence, cigarettes, uncomplicated; R62.7 Adult failure to thrive; Z98.890 Other specified postprocedural states; Z79.899 Other long term (current) drug therapy; Z79.2 Long term (current) use of antibiotics; Z79.52 Long term (current) use of systemic steroids; Z79.01 Long term (current) use of anticoagulants; Z79.51 Long term (current) use of inhaled steroids; Z79.4 Long term (current) use of insulin; Z74.01 Bed confinement status; Z87.01 Personal history of pneumonia (recurrent)
CPT/HCPCS: 70450; 74176; 82306; 82805; 82962; 83605; 83735; 84100; 84443; 87081; 93005; 96365; 96366; 96375; 99285; J3490